=== PATIENT | male | born 1955 | race Caucasian/White ===

== ENCOUNTER 2017-11-26 15:55 | Inpatient (IN) | payer MEDICAID, SELFPAY ==
[2017-11-26 16:13] VITALS: BMI 23.1
--- NOTE | 2017-11-26 16:22 | PCM.HP.STD ---
<Allan Montgomery - Last Filed: 11/26/17 16:22> Problem List (1) Withdrawal from opioids Status: Acute (2) Depression Status: Chronic (3) Anxiety Status: Chronic (4) Nicotine abuse Status: Chronic History of Present Illness Date of Admission: 11/26/17 Chief Complaint: acute opiate withdrawal The patient is a 62 year old M with a long history of heroin abuse, also with a hx of anxiety and depression for which he does not currently take anything, who presented to the medical stabilization program desiring help with heroin withdrawal. He has used about 1 gram of heroin per day for about 28 years. He injects into his deltoids bilaterally stating he has no veins left. He last used about 1/10th of a gram yesterday afternoon. Currently his withdrawal symptoms include mild shakiness, leg pain, hot and cold flashes, restless legs, flatulence without stomach upset, and significant anxiety. He last went through detox in [place] in 2012 and tried suboxone about a year ago which did not work for him. He also smokes about 2 packs per day. He has an occasional non productive cough. He is not SOB. Also of note he has a large healing surgical incision on his arm from an admission to a hospital last month where he had a spider bite and staph infection. It is healing nicely. He denies any other drug use and denies alcohol use. [] Past Medical History Past Medical History (Chronic Problems): Chronic Problems Depression (Chronic) Anxiety (Chronic) Nicotine abuse (Chronic) Surgical History: - - back plate, lung cyst removed not cancer Psychiatric History: Anxiety, Depression Lives: Alone Smoking Status: Heavy Smoker (>10/day) Tobacco Use: Cigarettes Alcohol: None Drugs: Heroin - *Family History Maternal History Items: Cancer - type unknown Paternal History Items: Heart Disease - [place] Review of Systems Constitutional: Reports: - - hot/cold flashes. Denies: Chills, Fever, Weight Change Eyes: Denies: Blurred vision, Double vision, Redness, Vision Change HEENT: Denies: Difficulty Hearing, Head Aches, Sinus Congestion, Sinus Drainage, Sore Throat Cardiovascular: Denies: Chest Pain, Chest Pressure, Chest Tightness, Edema, Heaviness, Light Headedness, Palpitations Respiratory: Reports: Cough. Denies: Shortness of Breath, Shortness of breath at rest, Shortness of breath upon exertion, Sputum production, Wheezing Gastrointestinal: Reports: - - flatus. Denies: Abdominal Pain, Constipation, Diarrhea, Nausea, Vomiting Genitourinary: Denies: Dysuria, Urgency Musculoskeletal: Reports: Leg Pain, -. Denies: Joint Pain, Joint Tenderness Skin: Denies: Rash, Wounds Neurological: Reports: - - restless legs. Denies: Balance problems, Blurred vision, Slurred speech, Confusion, Focal weakness, Headaches, Numbness, Tingling Psychiatric: Reports: Anxiety, Depression. Denies: Homicidal Ideations, Suicidal Ideations Hematologic/ Lymphatic: Denies: Easy Bruising, Easy Bleeding VTE Information - Inpt Only VTE Present on Admission: No VTE Mechan Device Prophylaxis: None VTE Pharm Prophylaxis ordered?: No Reason prophylaxis not ordered:: Procedure Not Indicated Patient Problems: Active and Suspected Problems Withdrawal from opioids (Acute) - Physical Exam General: Alert, Oriented x3, Cooperative HEENT: Atraumatic, PERRLA, EOMI, Normocephalic Neck: Supple, No JVD, Negative Carotid Bruits Lungs: Clear to auscultation, Normal air movement Cardiovascular: Regular rate, No murmurs Abdomen: Bowel Sounds Present, Soft, Non Tender Extremities: No edema, Capillary Refill Less than 3 Seconds Skin: No rashes, No breakdown, - - large healing incision site going from anterior forearm up herrera medial aspect of arm into shoulder. no erythema, discharge, tenderness, warmth Musculoskeletal: No Tenderness to Palpation of Joints or Extremities Neurological: Cranial nerves II-XII grossly intact Psych/Mental Status: Anxious, Alert and oriented to time, place, person, mood and affect Assessment/Plan Active and Suspected Problems Withdrawal from opioids (Acute) 1. Acute heroin withdrawal - 1 g/day IM user, last use yesterday afternoon about 1/10th gram. Current withdrawal symptoms include hot/cold flashes, restless legs and leg pain, shakiness. Initiate acute heroin withdrawal protocol. Plans to do 180 program at [place]. 2. Depression anxiety - currently not on any medications for this 3. Recent LUE staph infection. Appears to be healing well. Medical stabilization Day 1 of 4. Patient seen by Allan Montgomery PA-C under the supervision of Dr. Emerson. <Johan Emerson - Last Filed: 11/26/17 17:19> Problem List (1) Withdrawal from opioids Status: Acute (2) Depression Status: Chronic (3) Anxiety Status: Chronic (4) Nicotine abuse Status: Chronic History of Present Illness The patient is a 62 year old M's withdrawal from heroin. Patient has been using IV heroin now I am heroin for 28 years. Patient's last use was 11 PM on the 10th. Patient is experiencing cramps, restless legs, diaphoresis. [] Past Medical History Allergies fluconazole [From Diflucan] Allergy (Intermediate, Unverified 11/26/17 16:55) Hives Surgical History: - - back plate, lung cyst removed not cancer. Incision and drainage of the left upper extremity from a spider bite. Psychiatric History: Anxiety, Depression Lives: Alone Smoking Status: Heavy Smoker (>10/day) Tobacco Use: Cigarettes Alcohol: None Drugs: Heroin - *Family History Maternal History Items: Cancer Paternal History Items: Heart Disease Review of Systems Constitutional: Reports: -. Denies: Chills, Fever, Weight Change Eyes: Denies: Blurred vision, Double vision, Redness, Vision Change HEENT: Denies: Difficulty Hearing, Head Aches, Sinus Congestion, Sinus Drainage, Sore Throat Cardiovascular: Denies: Chest Pain, Chest Pressure, Chest Tightness, Edema, Heaviness, Light Headedness, Palpitations Respiratory: Reports: Cough. Denies: Shortness of Breath, Shortness of breath at rest, Shortness of breath upon exertion, Sputum production, Wheezing Gastrointestinal: Reports: -. Denies: Abdominal Pain, Constipation, Diarrhea, Nausea, Vomiting Genitourinary: Denies: Dysuria, Urgency Musculoskeletal: Reports: Leg Pain. Denies: Joint Pain, Joint Tenderness Skin: Denies: Rash Neurological: Denies: Balance problems, Blurred vision, Slurred speech, Confusion, Focal weakness, Headaches, Numbness, Tingling Psychiatric: Reports: Anxiety, Depression. Denies: Homicidal Ideations, Suicidal Ideations Hematologic/ Lymphatic: Denies: Easy Bruising, Easy Bleeding VTE Information - Inpt Only VTE Present on Admission: No VTE Mechan Device Prophylaxis: None VTE Pharm Prophylaxis ordered?: No Reason prophylaxis not ordered:: Procedure Not Indicated - Physical Exam General: Alert, Cooperative HEENT: Atraumatic, Normocephalic Neck: Supple, No JVD, Negative Carotid Bruits Lungs: Clear to auscultation, Normal air movement, No rhonchi, No wheeze Cardiovascular: Regular rate, Regular Rhythm, Normal S1, Normal S2, No murmurs Abdomen: Bowel Sounds Present, Soft, Non Tender, Non-Distended Extremities: No edema, No Calf Tenderness Skin: No rashes, No breakdown, - Musculoskeletal: No Tenderness to Palpation of Joints or Extremities Neurological: Cranial nerves II-XII grossly intact Weight: 83.7 kg Body Mass Index (BMI) 23.1 Assessment/Plan Patient seen and examined in family. Agree the above note by the physicians hospital medical assistant. 1. Acute heroin withdrawal Should be initiated on the medical stabilization protocol with Subutex. Patient will also have a medications to help him with other somatic complaints. Code Visit Inpatient E&M: 80452 Init Hosp L2
--- NOTE | 2017-11-26 16:32 | HP.PCM_ITS ---
<Allan Montgomery - Last Filed: 11/26/17 16:22> Problem List (1) Withdrawal from opioids Status: Acute (2) Depression Status: Chronic (3) Anxiety Status: Chronic (4) Nicotine abuse Status: Chronic History of Present Illness Date of Admission: 11/26/17 Chief Complaint: acute opiate withdrawal The patient is a 62 year old M with a long history of heroin abuse, also with a hx of anxiety and depression for which he does not currently take anything, who presented to the medical stabilization program desiring help with heroin withdrawal. He has used about 1 gram of heroin per day for about 28 years. He injects into his deltoids bilaterally stating he has no veins left. He last used about 1/10th of a gram yesterday afternoon. Currently his withdrawal symptoms include mild shakiness, leg pain, hot and cold flashes, restless legs, flatulence without stomach upset, and significant anxiety. He last went through detox in [place] in 2012 and tried suboxone about a year ago which did not work for him. He also smokes about 2 packs per day. He has an occasional non productive cough. He is not SOB. Also of note he has a large healing surgical incision on his arm from an admission to a hospital last month where he had a spider bite and staph infection. It is healing nicely. He denies any other drug use and denies alcohol use. [] Past Medical History Past Medical History (Chronic Problems): Chronic Problems Depression (Chronic) Anxiety (Chronic) Nicotine abuse (Chronic) Surgical History: - - back plate, lung cyst removed not cancer Psychiatric History: Anxiety, Depression Lives: Alone Smoking Status: Heavy Smoker (>10/day) Tobacco Use: Cigarettes Alcohol: None Drugs: Heroin - *Family History Maternal History Items: Cancer - type unknown Paternal History Items: Heart Disease - [place] Review of Systems Constitutional: Reports: - - hot/cold flashes. Denies: Chills, Fever, Weight Change Eyes: Denies: Blurred vision, Double vision, Redness, Vision Change HEENT: Denies: Difficulty Hearing, Head Aches, Sinus Congestion, Sinus Drainage , Sore Throat Cardiovascular: Denies: Chest Pain, Chest Pressure, Chest Tightness, Edema, Heaviness, Light Headedness, Palpitations Respiratory: Reports: Cough. Denies: Shortness of Breath, Shortness of breath at rest, Shortness of breath upon exertion, Sputum production, Wheezing Gastrointestinal: Reports: - - flatus. Denies: Abdominal Pain, Constipation, Diarrhea, Nausea, Vomiting Genitourinary: Denies: Dysuria, Urgency Musculoskeletal: Reports: Leg Pain, -. Denies: Joint Pain, Joint Tenderness Skin: Denies: Rash, Wounds Neurological: Reports: - - restless legs. Denies: Balance problems, Blurred vision, Slurred speech, Confusion, Focal weakness, Headaches, Numbness, Tingling Psychiatric: Reports: Anxiety, Depression. Denies: Homicidal Ideations, Suicidal Ideations Hematologic/ Lymphatic: Denies: Easy Bruising, Easy Bleeding VTE Information - Inpt Only VTE Present on Admission: No VTE Mechan Device Prophylaxis: None VTE Pharm Prophylaxis ordered?: No Reason prophylaxis not ordered:: Procedure Not Indicated Patient Problems: Active and Suspected Problems Withdrawal from opioids (Acute) - Physical Exam General: Alert, Oriented x3, Cooperative HEENT: Atraumatic, PERRLA, EOMI, Normocephalic Neck: Supple, No JVD, Negative Carotid Bruits Lungs: Clear to auscultation, Normal air movement Cardiovascular: Regular rate, No murmurs Abdomen: Bowel Sounds Present, Soft, Non Tender Extremities: No edema, Capillary Refill Less than 3 Seconds Skin: No rashes, No breakdown, - - large healing incision site going from anterior forearm up herrera medial aspect of arm into shoulder. no erythema, discharge, tenderness, warmth Musculoskeletal: No Tenderness to Palpation of Joints or Extremities Neurological: Cranial nerves II-XII grossly intact Psych/Mental Status: Anxious, Alert and oriented to time, place, person, mood and affect Assessment/Plan Active and Suspected Problems Withdrawal from opioids (Acute) 1. Acute heroin withdrawal - 1 g/day IM user, last use yesterday afternoon about 1/10th gram. Current withdrawal symptoms include hot/cold flashes, restless legs and leg pain, shakiness. Initiate acute heroin withdrawal protocol. Plans to do 180 program at [place]. 2. Depression anxiety - currently not on any medications for this 3. Recent LUE staph infection. Appears to be healing well. Medical stabilization Day 1 of 4. Patient seen by Allan Montgomery PA-C under the supervision of Dr. Emerson. <Johan Emerson - Last Filed: 11/26/17 17:19> Problem List (1) Withdrawal from opioids Status: Acute (2) Depression Status: Chronic (3) Anxiety Status: Chronic (4) Nicotine abuse Status: Chronic History of Present Illness The patient is a 62 year old M's withdrawal from heroin. Patient has been using IV heroin now I am heroin for 28 years. Patient's last use was 11 PM on the 10th. Patient is experiencing cramps, restless legs, diaphoresis. [] Past Medical History Allergies fluconazole [From Diflucan] Allergy (Intermediate, Unverified 11/26/17 16:55) Hives Surgical History: - - back plate, lung cyst removed not cancer. Incision and drainage of the left upper extremity from a spider bite. Psychiatric History: Anxiety, Depression Lives: Alone Smoking Status: Heavy Smoker (>10/day) Tobacco Use: Cigarettes Alcohol: None Drugs: Heroin - *Family History Maternal History Items: Cancer Paternal History Items: Heart Disease Review of Systems Constitutional: Reports: -. Denies: Chills, Fever, Weight Change Eyes: Denies: Blurred vision, Double vision, Redness, Vision Change HEENT: Denies: Difficulty Hearing, Head Aches, Sinus Congestion, Sinus Drainage , Sore Throat Cardiovascular: Denies: Chest Pain, Chest Pressure, Chest Tightness, Edema, Heaviness, Light Headedness, Palpitations Respiratory: Reports: Cough. Denies: Shortness of Breath, Shortness of breath at rest, Shortness of breath upon exertion, Sputum production, Wheezing Gastrointestinal: Reports: -. Denies: Abdominal Pain, Constipation, Diarrhea, Nausea, Vomiting Genitourinary: Denies: Dysuria, Urgency Musculoskeletal: Reports: Leg Pain. Denies: Joint Pain, Joint Tenderness Skin: Denies: Rash Neurological: Denies: Balance problems, Blurred vision, Slurred speech, Confusion, Focal weakness, Headaches, Numbness, Tingling Psychiatric: Reports: Anxiety, Depression. Denies: Homicidal Ideations, Suicidal Ideations Hematologic/ Lymphatic: Denies: Easy Bruising, Easy Bleeding VTE Information - Inpt Only VTE Present on Admission: No VTE Mechan Device Prophylaxis: None VTE Pharm Prophylaxis ordered?: No Reason prophylaxis not ordered:: Procedure Not Indicated - Physical Exam General: Alert, Cooperative HEENT: Atraumatic, Normocephalic Neck: Supple, No JVD, Negative Carotid Bruits Lungs: Clear to auscultation, Normal air movement, No rhonchi, No wheeze Cardiovascular: Regular rate, Regular Rhythm, Normal S1, Normal S2, No murmurs Abdomen: Bowel Sounds Present, Soft, Non Tender, Non-Distended Extremities: No edema, No Calf Tenderness Skin: No rashes, No breakdown, - Musculoskeletal: No Tenderness to Palpation of Joints or Extremities Neurological: Cranial nerves II-XII grossly intact Weight: 83.7 kg Body Mass Index (BMI) 23.1 Assessment/Plan Patient seen and examined in family. Agree the above note by the physicians senior court office assistant. 1. Acute heroin withdrawal * Should be initiated on the medical stabilization protocol with Subutex. Patient will also have a medications to help him with other somatic complaints. Code Visit Inpatient E&M: 32781 Init Hosp L2
[2017-11-26] MEDS: Buprenorphine HCl 2 MG TAB.SUBL SL (17:20)
[2017-11-26] MEDS: cloNIDine HCl 0.1 MG Tablet PO (17:21)
[2017-11-26] MEDS: QUEtiapine 25 MG Tablet PO (17:21)
[2017-11-26] MEDS: Dicyclomine 10 MG Capsule 20 MG PO (17:21)
[2017-11-26] MEDS: Methocarbamol 750 MG Tablet PO (17:22)
[2017-11-26] MEDS: Pramipexole Di-HCl 0.25 MG Tablet PO (17:25)
[2017-11-26 17:28] VITALS: BP 126/89; PULSE 82; RESP 20; TEMP 36.3
[2017-11-26 20:19] VITALS: BP 116/77; PULSE 51; RESP 18; TEMP 36.4
[2017-11-26] MEDS: hydrOXYzine PAM 25 MG Capsule 50 MG PO (20:23)
[2017-11-27] MEDS: Buprenorphine HCl 2 MG TAB.SUBL SL ×3 (01:48→16:58)
[2017-11-27 02:00] VITALS: BP 148/97; PULSE 55; RESP 16; TEMP 37.1
[2017-11-27 06:00] VITALS: BP 137/92; PULSE 55; RESP 18; TEMP 37
[2017-11-27] MEDS: Methocarbamol 750 MG Tablet PO ×2 (06:29→12:25)
[2017-11-27] MEDS: Pramipexole Di-HCl 0.25 MG Tablet PO ×2 (06:29→19:42)
[2017-11-27 09:36] VITALS: BP 130/90; PULSE 52; RESP 18; TEMP 36.3
[2017-11-27 15:54] VITALS: PULSE 58; RESP 18
[2017-11-27 16:00] VITALS: BP 149/95; PULSE 59; RESP 18; TEMP 36.4
--- NOTE | 2017-11-27 17:27 | PCM.PROGNOTE ---
Patient Problems: Active and Suspected Problems Withdrawal from opioids (Acute) Subjective: He feels well. He has no complains today. He denied of any abdominal discomfort, nausea, vomiting, or cold sweats. No signs of excess sedation. - Physical Exam General: Alert, Oriented x3, Cooperative, Well developed, Well nourished HEENT: Atraumatic, PERRLA Oral: Moist Mucosa Neck: Supple, No JVD Lungs: Clear to auscultation, Normal air movement, No rhonchi, No wheeze, No rales Cardiovascular: Regular rate, Regular Rhythm, Normal S1, Normal S2, No murmurs, No Ectopic Activity Abdomen: Bowel Sounds Present, Soft, Non Tender, Non-Distended, No Hepato-splenomegaly Extremities: No clubbing, No cyanosis Skin: No rashes, No breakdown, - - large healing incision site going from anterior forearm up herrera medial aspect of arm into shoulder. no erythema, discharge, tenderness, warmth Musculoskeletal: No Tenderness to Palpation of Joints or Extremities, No Muscle Wasting Lymphatic: No Cervical, Supraclavicular, or Inguinal Adenopathy Neurological: Cranial nerves II-XII grossly intact, Neuro grossly intact Psych/Mental Status: Normal Affect Vital Signs Temp Pulse Resp BP 97.5 F L 59 L 18 149/95 H 11/27/17 16:00 11/27/17 16:00 11/27/17 16:00 11/27/17 16:00 Oxygen Delivery Method Room Air Weight: 184 lb 8.43 oz Body Mass Index (BMI) 23.1 Intake and Output for Last 24 Hours 11/25/17 11/26/17 11/27/17 23:59 23:59 23:59 Intake Total 1700 / 1700 Balance 1700 / 1700 Medical Necessity - Tobacco Use Smoking Status: Heavy Smoker (>10/day) Tobacco Use: Cigarettes Assessment/Plan Active and Suspected Problems Withdrawal from opioids (Acute) The patient is a 62 year old M with a long history of heroin abuse, also with a hx of anxiety and depression for which he does not currently take anything, who presented to the medical stabilization program desiring help with heroin withdrawal. He has used about 1 gram of heroin per day for about 28 years. He injects into his deltoids bilaterally stating he has no veins left. He last used about 1/10th of a gram yesterday afternoon. Currently his withdrawal symptoms include mild shakiness, leg pain, hot and cold flashes, restless legs, flatulence without stomach upset, and significant anxiety. He last went through detox in [place] in 2012 and tried Subutex about a year ago which did not work for him. He also smokes about 2 packs per day. He has an occasional non productive cough. He is not SOB. Also of note he has a large healing surgical incision on his arm from an admission to a hospital last month where he had a spider bite and staph infection. It is healing nicely. He denies any other drug use and denies alcohol use. 1. Acute heroin withdrawal - 1 g/day IM user, last use yesterday afternoon about 1/10th gram. Current withdrawal symptoms include hot/cold flashes, restless legs and leg pain, shakiness. Initiate acute heroin withdrawal protocol. Plans to do 180 program [facility]. 2. Depression anxiety - currently not on any medications for this 3. Recent LUE staph infection. Appears to be healing well. VTE prophylaxis: early ambulation. Patient is full code. Disposition: 180 program at discharge. Code Visit Inpatient E&M: 35078 Subs Hosp L2
--- NOTE | 2017-11-27 17:32 | PN_ITS ---
Patient Problems: Active and Suspected Problems Withdrawal from opioids (Acute) Subjective: He feels well. He has no complains today. He denied of any abdominal discomfort, nausea, vomiting, or cold sweats. No signs of excess sedation. - Physical Exam General: Alert, Oriented x3, Cooperative, Well developed, Well nourished HEENT: Atraumatic, PERRLA Oral: Moist Mucosa Neck: Supple, No JVD Lungs: Clear to auscultation, Normal air movement, No rhonchi, No wheeze, No rales Cardiovascular: Regular rate, Regular Rhythm, Normal S1, Normal S2, No murmurs, No Ectopic Activity Abdomen: Bowel Sounds Present, Soft, Non Tender, Non-Distended, No Hepato- splenomegaly Extremities: No clubbing, No cyanosis Skin: No rashes, No breakdown, - - large healing incision site going from anterior forearm up herrera medial aspect of arm into shoulder. no erythema, discharge, tenderness, warmth Musculoskeletal: No Tenderness to Palpation of Joints or Extremities, No Muscle Wasting Lymphatic: No Cervical, Supraclavicular, or Inguinal Adenopathy Neurological: Cranial nerves II-XII grossly intact, Neuro grossly intact Psych/Mental Status: Normal Affect Vital Signs Temp Pulse Resp BP 97.5 F L 59 L 18 149/95 H 11/27/17 16:00 11/27/17 16:00 11/27/17 16:00 11/27/17 16:00 Oxygen Delivery Method Room Air Weight: 184 lb 8.43 oz Body Mass Index (BMI) 23.1 Intake and Output for Last 24 Hours 11/25/17 11/26/17 11/27/17 23:59 23:59 23:59 Intake Total 1700 / 1700 Balance 1700 / 1700 Medical Necessity - Tobacco Use Smoking Status: Heavy Smoker (>10/day) Tobacco Use: Cigarettes Assessment/Plan Active and Suspected Problems Withdrawal from opioids (Acute) The patient is a 62 year old M with a long history of heroin abuse, also with a hx of anxiety and depression for which he does not currently take anything, who presented to the medical stabilization program desiring help with heroin withdrawal. He has used about 1 gram of heroin per day for about 28 years. He injects into his deltoids bilaterally stating he has no veins left. He last used about 1/10th of a gram yesterday afternoon. Currently his withdrawal symptoms include mild shakiness, leg pain, hot and cold flashes, restless legs, flatulence without stomach upset, and significant anxiety. He last went through detox in [place] in 2012 and tried Subutex about a year ago which did not work for him. He also smokes about 2 packs per day. He has an occasional non productive cough. He is not SOB. Also of note he has a large healing surgical incision on his arm from an admission to a hospital last month where he had a spider bite and staph infection. It is healing nicely. He denies any other drug use and denies alcohol use. 1. Acute heroin withdrawal - 1 g/day IM user, last use yesterday afternoon about 1/10th gram. Current withdrawal symptoms include hot/cold flashes, restless legs and leg pain, shakiness. Initiate acute heroin withdrawal protocol. Plans to do 180 program at [place]. 2. Depression anxiety - currently not on any medications for this 3. Recent LUE staph infection. Appears to be healing well. VTE prophylaxis: early ambulation. Patient is full code. Disposition: 180 program at discharge. Code Visit Inpatient E&M: 06667 Subs Hosp L2
[2017-11-27] MEDS: Tuberculin,Purif.prot.deriv. 50 TU/ML Vial 5 ML ID (18:40)
[2017-11-27 19:34] VITALS: BP 127/84; PULSE 57; RESP 16; TEMP 36.6
[2017-11-27] MEDS: QUEtiapine 25 MG Tablet PO (19:42)
[2017-11-28 01:34] VITALS: BP 134/75; PULSE 58; RESP 20; TEMP 36.6
[2017-11-28] MEDS: Buprenorphine HCl 2 MG TAB.SUBL SL ×3 (01:37→21:00)
[2017-11-28] MEDS: QUEtiapine 25 MG Tablet PO ×3 (01:45→18:10)
[2017-11-28 09:20] VITALS: BP 134/92; PULSE 59; RESP 16; TEMP 36.4
[2017-11-28 14:00] VITALS: BP 108/68; PULSE 66; RESP 16; TEMP 36.2
[2017-11-28] MEDS: Methocarbamol 750 MG Tablet PO ×2 (14:12→21:01)
--- NOTE | 2017-11-28 19:13 | PN_ITS ---
Patient Problems: Active and Suspected Problems Withdrawal from opioids (Acute) Subjective: He feels well today. He has no additional problems. No chest pain, dyspnea, abdominal pain, nausea, vomiting, or diarrhea. - Physical Exam General: Alert, Oriented x3, Cooperative, Well developed, Well nourished HEENT: Atraumatic, PERRLA Oral: Moist Mucosa Neck: Supple, No JVD Lungs: Clear to auscultation, Normal air movement, No rhonchi, No wheeze, No rales Cardiovascular: Regular rate, Regular Rhythm, Normal S1, Normal S2, No murmurs, No Ectopic Activity Abdomen: Bowel Sounds Present, Soft, Non Tender, Non-Distended, No Hepato- splenomegaly Extremities: No clubbing, No cyanosis Skin: No rashes, No breakdown, - - large healing incision site going from anterior forearm up herrera medial aspect of arm into shoulder. no erythema, discharge, tenderness, warmth Musculoskeletal: No Tenderness to Palpation of Joints or Extremities, No Muscle Wasting Lymphatic: No Cervical, Supraclavicular, or Inguinal Adenopathy Neurological: Cranial nerves II-XII grossly intact, Neuro grossly intact Psych/Mental Status: Normal Affect - Physical Exam Vital Signs Temp Pulse Resp BP 97.1 F L 66 16 108/68 11/28/17 14:00 11/28/17 14:00 11/28/17 14:00 11/28/17 14:00 Oxygen Delivery Method Room Air Weight: 184 lb 8.43 oz Body Mass Index (BMI) 23.1 Intake and Output for Last 24 Hours 11/26/17 11/27/17 11/28/17 23:59 23:59 23:59 Intake Total 1700 / 1700 750 / 750 Balance 1700 / 1700 750 / 750 Medical Necessity - Tobacco Use Smoking Status: Heavy Smoker (>10/day) Tobacco Use: Cigarettes Assessment/Plan Active and Suspected Problems Withdrawal from opioids (Acute) The patient is a 62 year old M with a long history of heroin abuse, also with a hx of anxiety and depression for which he does not currently take anything, who presented to the medical stabilization program desiring help with heroin withdrawal. He has used about 1 gram of heroin per day for about 28 years. He injects into his deltoids bilaterally stating he has no veins left. He last used about 1/10th of a gram yesterday afternoon. Currently his withdrawal symptoms include mild shakiness, leg pain, hot and cold flashes, restless legs, flatulence without stomach upset, and significant anxiety. He last went through detox in [place] in 2012 and tried Subutex about a year ago which did not work for him. He also smokes about 2 packs per day. He has an occasional non productive cough. He is not SOB. Also of note he has a large healing surgical incision on his arm from an admission to a hospital last month where he had a spider bite and staph infection. It is healing nicely. He denies any other drug use and denies alcohol use. 1. Acute heroin withdrawal - 1 g/day IM user, last use yesterday afternoon about 1/10th gram. Current withdrawal symptoms include hot/cold flashes, restless legs and leg pain, shakiness. Initiate acute heroin withdrawal protocol. Plans to do 180 program at [place]. 2. Depression anxiety - currently not on any medications for this 3. Recent LUE staph infection. Appears to be healing well. VTE prophylaxis: early ambulation. Patient is full code. Disposition: 180 program at discharge. Code Visit Inpatient E&M: 49532 Subs Hosp L2
[2017-11-28 20:56] VITALS: BP 135/93; PULSE 60; RESP 18; TEMP 36.4
[2017-11-28] MEDS: cloNIDine HCl 0.1 MG Tablet PO (21:00)
[2017-11-29 08:58] VITALS: BP 129/84; PULSE 68; RESP 16; TEMP 36.6; O2SAT 95
[2017-11-29 09:01] VITALS: BP 129/84; PULSE 68; RESP 16; TEMP 36.6
[2017-11-29] MEDS: Buprenorphine HCl 2 MG TAB.SUBL SL (09:11)
[2017-11-29] MEDS: Methocarbamol 750 MG Tablet PO (09:17)
--- NOTE | 2017-11-29 09:52 | PCM.DC ---
- Discharge Diagnoses Current Active Problems: Current Active and Chronic Problems Withdrawal from opioids (Acute) Depression (Chronic) Anxiety (Chronic) Nicotine abuse (Chronic) You will use the following diet at home:: No restrictions Your food should be the consistency of: Regular Your liquids should be the consistency of: Regular/Thin Allergies/Adverse Reactions: Allergies fluconazole [From Diflucan] Allergy (Intermediate, Verified 11/26/17 18:27) Hives Primary Care Physician: Care Physician,No Primary [Primary Care Provider] - Please Follow Up With: Follow up with [facility]
--- NOTE | 2017-11-29 09:53 | PCM.DC.SUM ---
Discharge Date and Diagnosis - Problem List Patient Problems: Active and Suspected Problems Withdrawal from opioids (Acute) Date of Admission: 11/26/17 Date of Discharge: 11/29/17 - Primary Discharge Diagnosis Active and Suspected Problems Withdrawal from opioids (Acute) - Secondary Discharge Diagnosis Chronic Problems Depression (Chronic) Anxiety (Chronic) Nicotine abuse (Chronic) Hospital Course and Treatment Imaging Results: None. APPLICATIONS ARCHITECT: Fei Long. Operations: None Procedures: None Summary of Care Provided: The patient is a 62 year old M with a long history of heroin abuse, also with a hx of anxiety and depression for which he does not currently take anything, who presented to the medical stabilization program desiring help with heroin withdrawal. He has used about 1 gram of heroin per day for about 28 years. He injects into his deltoids bilaterally stating he has no veins left. He last used about 1/10th of a gram yesterday afternoon. Currently his withdrawal symptoms include mild shakiness, leg pain, hot and cold flashes, restless legs, flatulence without stomach upset, and significant anxiety. He last went through detox in [place] in 2012 and tried Subutex about a year ago which did not work for him. He also smokes about 2 packs per day. He has an occasional non productive cough. He is not SOB. Also of note he has a large healing surgical incision on his arm from an admission to a hospital last month where he had a spider bite and staph infection. It is healing nicely. He denies any other drug use and denies alcohol use. 1. Acute heroin withdrawal - 1 g/day IM user, last use yesterday afternoon about 1/10th gram. Current withdrawal symptoms include hot/cold flashes, restless legs and leg pain, shakiness. Completed Medical Stabilization therapy. Discharge to home and follow up with [facility]. 2. Depression anxiety - currently not on any medications. His affect / mood are stable. 3. Recent LUE staph infection. Appears to be healing well. No further treatment at this time. VTE prophylaxis: early ambulation. Patient is full code. Disposition: [facility] program at discharge. [facility]. Discharge Diet: No Restrictions Discharge Activity: Return to Normal Activity Primary Care Physician: Care Physician,No Primary [Primary Care Provider] - Please Follow Up With: Follow up with [facility] Disposition: Home Patient Condition:: Good Medical Necessity - Tobacco Use Smoking Status: Heavy Smoker (>10/day) Tobacco Use: Cigarettes Meaningful Use Info Meaningful Use Diagnoses (Choose all that apply): None applicable Code Visit Inpatient E&M: 00134 Disch Hosp
--- NOTE | 2017-11-29 09:56 | DS.PCM_ITS ---
Discharge Date and Diagnosis - Problem List Patient Problems: Active and Suspected Problems Withdrawal from opioids (Acute) Date of Admission: 11/26/17 Date of Discharge: 11/29/17 - Primary Discharge Diagnosis Active and Suspected Problems Withdrawal from opioids (Acute) - Secondary Discharge Diagnosis Chronic Problems Depression (Chronic) Anxiety (Chronic) Nicotine abuse (Chronic) Hospital Course and Treatment Imaging Results: None. TECHNICAL WRITING LEAD/MGR: Fei Long. Operations: None Procedures: None Summary of Care Provided: The patient is a 62 year old M with a long history of heroin abuse, also with a hx of anxiety and depression for which he does not currently take anything, who presented to the medical stabilization program desiring help with heroin withdrawal. He has used about 1 gram of heroin per day for about 28 years. He injects into his deltoids bilaterally stating he has no veins left. He last used about 1/10th of a gram yesterday afternoon. Currently his withdrawal symptoms include mild shakiness, leg pain, hot and cold flashes, restless legs, flatulence without stomach upset, and significant anxiety. He last went through detox in [place] in 2012 and tried Subutex about a year ago which did not work for him. He also smokes about 2 packs per day. He has an occasional non productive cough. He is not SOB. Also of note he has a large healing surgical incision on his arm from an admission to a hospital last month where he had a spider bite and staph infection. It is healing nicely. He denies any other drug use and denies alcohol use. 1. Acute heroin withdrawal - 1 g/day IM user, last use yesterday afternoon about 1/10th gram. Current withdrawal symptoms include hot/cold flashes, restless legs and leg pain, shakiness. Completed Medical Stabilization therapy. Discharge to home and follow up with [facility]. 2. Depression anxiety - currently not on any medications. His affect / mood are stable. 3. Recent LUE staph infection. Appears to be healing well. No further treatment at this time. VTE prophylaxis: early ambulation. Patient is full code. Disposition: [facility] program at discharge. [facility]. Discharge Diet: No Restrictions Discharge Activity: Return to Normal Activity Primary Care Physician: Care Physician,No Primary [Primary Care Provider] - Please Follow Up With: Follow up with [facility] Disposition: Home Patient Condition:: Good Medical Necessity - Tobacco Use Smoking Status: Heavy Smoker (>10/day) Tobacco Use: Cigarettes Meaningful Use Info Meaningful Use Diagnoses (Choose all that apply): None applicable Code Visit Inpatient E&M: 58353 Disch Hosp
[2017-11-29] MEDS: hydrOXYzine PAM 25 MG Capsule 50 MG PO (11:47)
[2017-11-29] MEDS: cloNIDine HCl 0.1 MG Tablet PO (11:47)
--- NOTE | 2017-11-29 11:48 | NURSING ---
Pt c/o anxiety and hot/ cold fluctuation. PRN meds given at this time to help with withdrawal symptoms.
[2017-11-29 14:00] VITALS: BP 107/65; PULSE 58; RESP 16; TEMP 36.4
--- NOTE | 2017-11-29 16:25 | NURSING ---
Patient states that he has a family member that might be able to transport him home this evening, after TB test is read, close to 1900. This RN called [facility] [employer] transportation assistance and notified them of situation and that patient must be discharged today. Notified that I will need to call again when patient is ready to leave as they might have a car that they would send immediately. Notified that they do take patients after 7pm but that it might take awhile to arrange transportation.
[2017-11-29 17:04] VITALS: BP 114/75; PULSE 58; RESP 16; TEMP 36.3
== END 2017-11-29 19:15 | disposition home or self-care (01) | DRG 435 ==
PROVIDERS: Visit Provider Hospitalist
DX: F11.23 Opioid dependence with withdrawal (principal); F17.210 Nicotine dependence, cigarettes, uncomplicated; F32.9 Major depressive disorder, single episode, unspecified; F41.9 Anxiety disorder, unspecified

== ENCOUNTER 2018-05-28 13:46 | Inpatient (IN) | payer MEDICAID, SELFPAY ==
[2018-05-28 14:05] VITALS: RESP 18; BMI 21.2
[2018-05-28 14:19] VITALS: BP 135/83; PULSE 67; RESP 16; TEMP 36.1
[2018-05-28 14:21] VITALS: BP 135/83; PULSE 67; RESP 18; TEMP 36.1; O2SAT 98
--- NOTE | 2018-05-28 14:48 | PCM.HP.STD ---
History of Present Illness Date of Admission: 05/28/18 Chief Complaint: opioid withdrawal The patient is a 63 year old M with h/o heroin abuse. Admits to using about 1 gram a day almost daily. Has been an active user for almost 30 years patient presented to [facility] and appears is interested in getting help and getting sober. last use was yesterday. Complains of classic withdrawal symptoms with jitteriness, sweating, restless legs and anxiety and also beginning o have some diarrhea. denies any nausea or vomiting. Does have some abdominal cramps though. Denies any chest plain or SOB [] Past Medical History Past Medical History (Chronic Problems): Chronic Problems Depression (Chronic) Anxiety (Chronic) Nicotine abuse (Chronic) Allergies fluconazole [From Diflucan] Allergy (Intermediate, Verified 11/26/17 18:27) Hives Surgical History: - - back plate, lung cyst removed not cancer. Incision and drainage of the left upper extremity from a spider bite. Psychiatric History: Anxiety, Depression Smoking Status: Heavy Smoker (>10/day) - *Family History Maternal History Items: Cancer Paternal History Items: Heart Disease Review of Systems Constitutional: Reports: Chills, Malaise. Denies: Anorexia Cardiovascular: Reports: Claudication. Denies: Chest Pain, Chest Pressure, Chest Tightness Respiratory: Denies: Cough, Shortness of Breath Gastrointestinal: Reports: Abdominal Pain, Diarrhea. Denies: Nausea, Vomiting Musculoskeletal: Reports: Leg Pain, Muscle pain Psychiatric: Reports: Anxiety Comment: All other systems reviewed and are negative VTE Information - Inpt Only VTE Present on Admission: No VTE Mechan Device Prophylaxis: None VTE Pharm Prophylaxis ordered?: No Objective: met sitting up in bed eating - Physical Exam General: Alert, Oriented x3, Cooperative - in some distress, restless Oral: Moist Mucosa Neck: Supple, No JVD Lungs: Clear to auscultation, Normal air movement, No rhonchi, No wheeze, No rales Cardiovascular: Regular rate, Regular Rhythm, Normal S1, Normal S2, No murmurs, No Ectopic Activity Abdomen: Bowel Sounds Present, Soft, Non Tender, Non-Distended, No Hepato-splenomegaly, Passing Flatus Extremities: No clubbing, No cyanosis, No edema Skin: No rashes Neurological: Cranial nerves II-XII grossly intact, Deep Tendon Reflexes 2+/4 and Symmetrical, Neuro grossly intact Psych/Mental Status: Normal Affect, Agitated, Anxious, Restless Vital Signs Temp Pulse Resp BP Pulse Ox 97.0 F L 67 18 135/83 H 98 05/28/18 14:21 05/28/18 14:21 05/28/18 14:21 05/28/18 14:21 05/28/18 14:21 Oxygen Delivery Method Room Air Weight: 77.111 kg Body Mass Index (BMI) 21.2 Assessment/Plan All Active Problems Withdrawal from opioids (Acute) 1. Acute heroin withdrawal Will start on opioid withdrawal protocol Emotional support Consult case planner Code Visit Inpatient E&M: 44874 Init Hosp L3
[2018-05-28] MEDS: Buprenorphine HCl 2 MG TAB.SUBL SL ×2 (14:52→21:47)
--- NOTE | 2018-05-28 15:07 | HP.PCM_ITS ---
History of Present Illness Date of Admission: 05/28/18 Chief Complaint: opioid withdrawal The patient is a 63 year old M with h/o heroin abuse. Admits to using about 1 gram a day almost daily. Has been an active user for almost 30 years patient presented to [facility] and appears is interested in getting help and getting sober. last use was yesterday. Complains of classic withdrawal symptoms with jitteriness, sweating, restless legs and anxiety and also beginning o have some diarrhea. denies any nausea or vomiting. Does have some abdominal cramps though. Denies any chest plain or SOB [] Past Medical History Past Medical History (Chronic Problems): Chronic Problems Depression (Chronic) Anxiety (Chronic) Nicotine abuse (Chronic) Allergies fluconazole [From Diflucan] Allergy (Intermediate, Verified 11/26/17 18:27) Hives Surgical History: - - back plate, lung cyst removed not cancer. Incision and drainage of the left upper extremity from a spider bite. Psychiatric History: Anxiety, Depression Smoking Status: Heavy Smoker (>10/day) - *Family History Maternal History Items: Cancer Paternal History Items: Heart Disease Review of Systems Constitutional: Reports: Chills, Malaise. Denies: Anorexia Cardiovascular: Reports: Claudication. Denies: Chest Pain, Chest Pressure, Chest Tightness Respiratory: Denies: Cough, Shortness of Breath Gastrointestinal: Reports: Abdominal Pain, Diarrhea. Denies: Nausea, Vomiting Musculoskeletal: Reports: Leg Pain, Muscle pain Psychiatric: Reports: Anxiety Comment: All other systems reviewed and are negative VTE Information - Inpt Only VTE Present on Admission: No VTE Mechan Device Prophylaxis: None VTE Pharm Prophylaxis ordered?: No Objective: met sitting up in bed eating - Physical Exam General: Alert, Oriented x3, Cooperative - in some distress, restless Oral: Moist Mucosa Neck: Supple, No JVD Lungs: Clear to auscultation, Normal air movement, No rhonchi, No wheeze, No rales Cardiovascular: Regular rate, Regular Rhythm, Normal S1, Normal S2, No murmurs, No Ectopic Activity Abdomen: Bowel Sounds Present, Soft, Non Tender, Non-Distended, No Hepato- splenomegaly, Passing Flatus Extremities: No clubbing, No cyanosis, No edema Skin: No rashes Neurological: Cranial nerves II-XII grossly intact, Deep Tendon Reflexes 2+/4 and Symmetrical, Neuro grossly intact Psych/Mental Status: Normal Affect, Agitated, Anxious, Restless Vital Signs Temp Pulse Resp BP Pulse Ox 97.0 F L 67 18 135/83 H 98 05/28/18 14:21 05/28/18 14:21 05/28/18 14:21 05/28/18 14:21 05/28/18 14:21 Oxygen Delivery Method Room Air Weight: 77.111 kg Body Mass Index (BMI) 21.2 Assessment/Plan All Active Problems Withdrawal from opioids (Acute) 1. Acute heroin withdrawal Will start on opioid withdrawal protocol Emotional support Consult community case manager Code Visit Inpatient E&M: 52149 Init Hosp L3
[2018-05-28] MEDS: Dicyclomine 10 MG Capsule 20 MG PO (16:36)
[2018-05-28 17:54] VITALS: BP 128/40; PULSE 53; RESP 18; TEMP 36.8
[2018-05-28] MEDS: hydrOXYzine PAM 25 MG Capsule 50 MG PO (17:54)
[2018-05-28] MEDS: Pramipexole Di-HCl 0.25 MG Tablet PO (18:51)
[2018-05-28 21:44] VITALS: BP 136/84; PULSE 52; RESP 16; TEMP 36.6
[2018-05-28] MEDS: QUEtiapine 25 MG Tablet PO (21:47)
[2018-05-28] MEDS: Methocarbamol 750 MG Tablet PO (21:47)
[2018-05-29 02:00] VITALS: BP 118/71; PULSE 55; RESP 16; TEMP 36.6
[2018-05-29] MEDS: Dicyclomine 10 MG Capsule 20 MG PO (02:20)
[2018-05-29] MEDS: hydrOXYzine PAM 25 MG Capsule 50 MG PO ×2 (02:20→16:27)
[2018-05-29] MEDS: Methocarbamol 750 MG Tablet PO ×4 (05:34→22:50)
[2018-05-29 05:35] VITALS: BP 141/87; PULSE 45; RESP 16; TEMP 36.4
[2018-05-29] MEDS: Buprenorphine HCl 2 MG TAB.SUBL SL ×3 (05:35→22:50)
--- NOTE | 2018-05-29 05:47 | NURSING ---
Pt asymptomatic with bradycardia. Regular S1, S2.
--- NOTE | 2018-05-29 07:29 | PN_ITS ---
Subjective: Patient was seen and examined. Complains of generalized aches. Denies any worsening nausea or dizziness or chest pain Vitals/I&O's: Vital Signs Temp Pulse Resp BP Pulse Ox 97.6 F L 45 L 16 141/87 H 98 05/29/18 05:35 05/29/18 05:35 05/29/18 05:35 05/29/18 05:35 05/28/18 14:21 Oxygen Delivery Method Room Air Weight: 77.11 kg Body Mass Index (BMI) 21.2 Intake and Output for Last 24 Hours 05/27/18 05/28/18 05/29/18 23:59 23:59 23:59 Intake Total 800 / 800 Balance 800 / 800 General: Alert, Oriented x3, Cooperative, No apparent distress HEENT: Atraumatic, PERRLA, EOMI, Normocephalic Oral: Moist Mucosa Neck: Supple, No JVD, Negative Carotid Bruits Lungs: Clear to auscultation, Normal air movement Cardiovascular: Regular rate, Regular Rhythm, Normal S1, Normal S2, No murmurs Abdomen: Bowel Sounds Present, Soft, Non Tender, Non-Distended, No Hepato- splenomegaly Extremities: No edema Skin: No rashes, No breakdown Musculoskeletal: No Tenderness to Palpation of Joints or Extremities Lymphatic: No Cervical, Supraclavicular, or Inguinal Adenopathy Neurological: Cranial nerves II-XII grossly intact, Neuro grossly intact Psych/Mental Status: Normal Affect, Appropriate Current Medications Buprenorphine HCl (Buprenorphine Hcl) 4 mg SL Q8H ISMAEL; Taper Stop: 05/31/18 18:29 Last Admin: 05/29/18 05:35 Dose: 4 mg Clonidine (Catapres) 0.1 mg PO Q2H PRN PRN PRN Reason: Hot/Cold Sweats or Anxiety Dicyclomine HCl (Bentyl) 20 mg PO Q6H PRN PRN PRN Reason: Abdomnial Discomfort Last Admin: 05/29/18 02:20 Dose: 20 mg Hydroxyzine Pamoate (Vistaril Pamoate Capsule) 50 mg PO Q6H PRN PRN PRN Reason: Mild Anxiety Last Admin: 05/29/18 02:20 Dose: 50 mg Methocarbamol (Methocarbamol) 750 mg PO 4X/DAY PRN PRN Reason: MUSCLE SPASM Last Admin: 05/29/18 05:34 Dose: 750 mg Nicotine (Nicoderm Cq (Pbkc)) 21 mg TRANSDERM. DAILY ISMAEL Last Admin: 05/28/18 19:36 Dose: 21 mg Pramipexole Dihydrochloride (Mirapex) 0.25 mg PO Q12H PRN PRN PRN Reason: Restless Legs Last Admin: 05/28/18 18:51 Dose: 0.25 mg Quetiapine Fumarate (Seroquel) 25 mg PO Q6H PRN PRN Reason: AGITATION Last Admin: 05/28/18 21:47 Dose: 25 mg Medical Necessity - Tobacco Use Smoking Status: Heavy Smoker (>10/day) Assessment/Plan All Active Problems Withdrawal from opioids (Acute) 63-year-old male with past medical history of heroin dependency comes in with nausea, muscle aches, diarrhea, restless leg, for medical stabilization. He last used heroin 1 day prior to admission 1. Acute opioid withdrawal in a known heroin user, improving, recent CIWA score was 4, being managed under the [facility] protocol, continue to monitor 2. Nicotine dependency, advised to quit, on replacement 3. Anxiety/depression, not on any chronic home meds 4. DVT prophylaxis with early ambulation Code Visit Inpatient E&M: 35577 Subs Hosp L2
[2018-05-29 08:26] VITALS: BP 118/75; PULSE 50; RESP 16; TEMP 36.6; O2SAT 99
[2018-05-29] MEDS: QUEtiapine 25 MG Tablet PO ×2 (13:02→22:49)
[2018-05-29] MEDS: Pramipexole Di-HCl 0.25 MG Tablet PO (13:02)
[2018-05-29 13:06] VITALS: BP 114/78; PULSE 60; RESP 16; TEMP 36.8; O2SAT 98
[2018-05-29 16:22] VITALS: BP 130/89; PULSE 58; RESP 16; RESP 18; TEMP 36.4; O2SAT 99
--- NOTE | 2018-05-29 18:37 | NURSING ---
Emily called up to unit at 1828 and notified this RN that patient called downstairs and stated that he did not receive his dinner. Emily asked this RN if someone could go back and check on pt to see if he is confused. OZZIE Rivera sitting by this RN and was asked. She states that pt. is not confused. Emily asked if they could provide meal and emily said no, the cafeteria is closed. She stated that we need to have staff provide pt a frozen dinner. This RN notified her that a problem with this is that it causes staff to have angry patients. OZZIE Rivera notified this RN that she was present in room prior to 1800 when patient ordered a fish sandwich for dinner. OZZIE Rivera went in to see patient, apologized and provided pt with his selection of a tv dinner.
[2018-05-29 22:47] VITALS: BP 120/89; PULSE 57; RESP 14; TEMP 36.6
[2018-05-30 05:45] VITALS: BP 125/81; PULSE 52; RESP 16; TEMP 36.6
[2018-05-30] MEDS: Pramipexole Di-HCl 0.25 MG Tablet PO ×2 (05:46→23:12)
[2018-05-30] MEDS: Buprenorphine HCl 2 MG TAB.SUBL SL ×2 (05:46→18:40)
[2018-05-30 06:40] LABS: Absolute Lymphocyte Count 1.78 X10^3/ul (0.83-4.51); Absolute Neutrophil Count 2.7 X10^3/uL (2.0-7.7); Basophil# 0.05 X10^3/uL; Eosinophil# 0.36 X10^3/uL; Eosinophils% 6.9 % (0-5); Hematocrit 42.5 % (40-54); Hemoglobin 13.7 g/dl (13.0-16.5); Lymphocyte # 1.78 X10^3/ul (4.0); Mean Corp Hgb Conc 32.2 g/gl (32-36); Mean Corpuscular Hgb 28.8 pg (27.0-32.0); Mean Corpuscular Volume 89.3 fL (80-94); Mean Platelet Vol. 11.8 fl (6.2-12.0); Monocyte# 0.36 X10^3/uL; Monocyte% 6.9 % (0-10); Neutrophil # 2.67 X10^3/uL (2.7-7.7); POSITIVE COUNT NO; POSITIVE DIFFERENTIAL NO; POSITIVE MORPHOLOGY NO; Platelet Count 174 K/mm3 (150-450); RBC Distribution Width CV 15.5 % (11.6-14.6); RBC Distribution Width SD 50.3 fl (35.1-43.9); Red Blood Count 4.76 M/mm3 (4.6-6.2); White Blood Count 5.2 K/mm3 (4.4-11.0)
[2018-05-30 06:57] LABS: ALB/GLOB Ratio 0.6 RATIO (0.9-2.4); AST(SGOT) 28 U/L (15-37); Alanine Aminotransfer ALT/SGPT 26 U/L (16-61); Albumin, Serum 2.6 g/dL (3.2-5.0); Alkaline Phosphatase 90 U/L (45-117); Anion Gap 7 (5-15); BUN 18 mg/dL (7-18); BUN/Creat Ratio 22.5 RATIO (10-20); Calcium,Total 8.3 mg/dL (8.5-10.1); Chloride 112 mmol/L (98-107); EST Glomerular Filtration Rate 104 mL/min (>60); Est Glom Filt Rate - Afr Amer 126 mL/min (>60); Estimated Creatinine Clearance 105.76 ml/min; Globulin 4.6 g/dL (2.2-4.2); Glucose 88 mg/dL (74-106); Protein, Total 7.2 g/dL (6.4-8.2); Sodium Level 141 mmol/L (136-145)
[2018-05-30 09:16] VITALS: BP 125/77; PULSE 55; RESP 20; TEMP 36.4
[2018-05-30] MEDS: hydrOXYzine PAM 25 MG Capsule 50 MG PO ×2 (11:22→17:57)
[2018-05-30] MEDS: Methocarbamol 750 MG Tablet PO ×3 (11:22→23:12)
--- NOTE | 2018-05-30 12:07 | PN_ITS ---
Subjective: Patient was seen and examined. Denies any new complains except for restless leg. Feels slightly nauseous but no vomiting. Muscle aches have improved with treatment. Objective: General: Alert, Oriented x3, Cooperative, No apparent distress HEENT: Atraumatic, PERRLA, EOMI, Normocephalic Oral: Moist Mucosa Neck: Supple, No JVD, Negative Carotid Bruits Lungs: Clear to auscultation, Normal air movement Cardiovascular: Regular rate, Regular Rhythm, Normal S1, Normal S2, No murmurs Abdomen: Bowel Sounds Present, Soft, Non Tender, Non-Distended, No Hepato- splenomegaly Extremities: No edema Skin: No rashes, No breakdown Musculoskeletal: No Tenderness to Palpation of Joints or Extremities Lymphatic: No Cervical, Supraclavicular, or Inguinal Adenopathy Neurological: Cranial nerves II-XII grossly intact, Neuro grossly intact Psych/Mental Status: Normal Affect, Appropriate Vitals/I&O's: Vital Signs Temp Pulse Resp BP Pulse Ox 97.6 F L 55 L 20 H 125/77 H 99 05/30/18 09:16 05/30/18 09:16 05/30/18 09:16 05/30/18 09:16 05/29/18 16:22 Oxygen Delivery Method Room Air Weight: 77.11 kg Body Mass Index (BMI) 21.2 Intake and Output for Last 24 Hours 05/28/18 05/29/18 05/30/18 23:59 23:59 23:59 Intake Total 800 / 800 Balance 800 / 800 Laboratory Results 05/30/18 06:12: WBC 5.2, RBC 4.76, Hgb 13.7, Hct 42.5, MCV 89.3, MCH 28.8, MCHC 32.2, RDW 15.5 H, RDW Differential 50.3 H, Plt Count 174, MPV 11.8, Immature Gran % (Auto) 0.200, Neut % (Auto) 51.0, Lymph % (Auto) 34.0, [place] % (Auto) 6.9, Eos % (Auto) 6.9 H, Baso % (Auto) 1.0, Absolute Neuts (auto) 2.7, Absolute Lymphs (auto) 1.78, Total Counted Not Reportable 05/30/18 06:12: Sodium 141, Potassium 4.0, Chloride 112 H, Carbon Dioxide 22.0, Anion Gap 7, BUN 18, Creatinine 0.80, Estim Creat Clear Calc 105.76, Est GFR (MDRD) Af Amer 126, Est GFR (MDRD) Non-Af 104, BUN/Creatinine Ratio 22.5 H, Glucose 88, Calcium 8.3 L, Total Bilirubin 0.50, AST 28, ALT 26, Alkaline Phosphatase 90, Total Protein 7.2, Albumin 2.6 L, Globulin 4.6 H, Albumin/Globulin Ratio 0.6 L Current Medications Buprenorphine HCl (Buprenorphine Hcl) 2 mg SL Q12H ISMAEL; Taper Stop: 05/31/18 18:29 Last Admin: 05/30/18 05:46 Dose: 2 mg Clonidine (Catapres) 0.1 mg PO Q2H PRN PRN PRN Reason: Hot/Cold Sweats or Anxiety Dicyclomine HCl (Bentyl) 20 mg PO Q6H PRN PRN PRN Reason: Abdomnial Discomfort Last Admin: 05/29/18 02:20 Dose: 20 mg Hydroxyzine Pamoate (Vistaril Pamoate Capsule) 50 mg PO Q6H PRN PRN PRN Reason: Mild Anxiety Last Admin: 05/30/18 11:22 Dose: 50 mg Methocarbamol (Methocarbamol) 750 mg PO 4X/DAY PRN PRN Reason: MUSCLE SPASM Last Admin: 05/30/18 11:22 Dose: 750 mg Nicotine (Nicoderm Cq (Pbkc)) 21 mg TRANSDERM. DAILY ISMAEL Last Admin: 05/30/18 09:22 Dose: 21 mg Pramipexole Dihydrochloride (Mirapex) 0.25 mg PO Q12H PRN PRN PRN Reason: Restless Legs Last Admin: 05/30/18 05:46 Dose: 0.25 mg Quetiapine Fumarate (Seroquel) 25 mg PO Q6H PRN PRN Reason: AGITATION Last Admin: 05/29/18 22:49 Dose: 25 mg Medical Necessity - Tobacco Use Smoking Status: Heavy Smoker (>10/day) Assessment/Plan All Active Problems Withdrawal from opioids (Acute) 63-year-old male with past medical history of heroin dependency comes in with nausea, muscle aches, diarrhea, restless leg, for medical stabilization. He last used heroin 1 day prior to admission 1. Acute opioid withdrawal in a known heroin user, improving,will continue on [facility] protocol, continue to monitor 2. Nicotine dependency, advised to quit, on replacement 3. Anxiety/depression, not on any chronic home meds 4. DVT prophylaxis with early ambulation Code Visit Inpatient E&M: 72450 Subs Hosp L2
--- NOTE | 2018-05-30 12:54 | NURSING ---
1245 pt anxious about surgery, reassured pt and repositioned in bed. pre-op checklist updated. Jagdish Russell RN
[2018-05-30 14:00] VITALS: BP 107/70; PULSE 61; RESP 20; TEMP 36.4
[2018-05-30 18:00] VITALS: BP 110/59; PULSE 60; RESP 20; TEMP 36.6
[2018-05-30 20:28] VITALS: BP 137/90; PULSE 65; RESP 18; TEMP 37.2; O2SAT 98
[2018-05-30] MEDS: QUEtiapine 25 MG Tablet PO (23:12)
[2018-05-31 05:20] VITALS: BP 119/87; PULSE 64; RESP 18; TEMP 36.4
[2018-05-31] MEDS: Buprenorphine HCl 2 MG TAB.SUBL SL (05:28)
[2018-05-31] MEDS: cloNIDine HCl 0.1 MG Tablet PO (05:28)
[2018-05-31] MEDS: Methocarbamol 750 MG Tablet PO (05:28)
--- NOTE | 2018-05-31 07:16 | PCM.DC.SUM ---
Discharge Date and Diagnosis Date of Admission: 05/28/18 Date of Discharge: 05/31/18 - Primary Discharge Diagnosis Acute Opioid withdrawal Nicotine dependency - Secondary Discharge Diagnosis Chronic Problems Depression (Chronic) Anxiety (Chronic) Nicotine abuse (Chronic) Hospital Course and Treatment None Operations: None Procedures: None Summary of Care Provided: 63-year-old male with past medical history of heroin dependency comes in with nausea, muscle aches, diarrhea, restless leg, for medical stabilization. He last used heroin 1 day prior to admission. He was managed on the [facility] protocol with improvement. Patient was discharged to follow-up in the outpatient with the outpatient drug rehab program/[facility]. He was counseled to stop smoking and using heroin. Subjective: On the day of discharge, he had no complaints. Denies any dizziness or chest pain or shortness of breath. Objective: Physical exam: General: Alert, Oriented x3, Cooperative, No apparent distress HEENT: Atraumatic, PERRLA, EOMI, Normocephalic Oral: Moist Mucosa Neck: Supple, No JVD, Negative Carotid Bruits Lungs: Clear to auscultation, Normal air movement Cardiovascular: Regular rate, Regular Rhythm, Normal S1, Normal S2, No murmurs Abdomen: Bowel Sounds Present, Soft, Non Tender, Non-Distended, No Hepato-splenomegaly Extremities: No edema Skin: No rashes, No breakdown Musculoskeletal: No Tenderness to Palpation of Joints or Extremities Lymphatic: No Cervical, Supraclavicular, or Inguinal Adenopathy Neurological: Cranial nerves II-XII grossly intact, Neuro grossly intact Psych/Mental Status: Normal Affect, Appropriate - Physical Exam Vital Signs Temp Pulse Resp BP Pulse Ox 97.5 F L 64 18 119/87 H 98 05/31/18 05:20 05/31/18 05:20 05/31/18 05:20 05/31/18 05:20 05/30/18 20:28 Oxygen Delivery Method Room Air Weight: 77.11 kg Body Mass Index (BMI) 21.2 Discharge Diet: No Restrictions Discharge Activity: Return to Normal Activity Primary Care Physician: Care Physician,No Primary [Primary Care Provider] - Please follow up with your Primary Care Physician in: within 2 weeks of discharge Disposition: Home Minutes spent on discharge:: 25 Patient Condition:: Stable Medical Necessity - Tobacco Use Smoking Status: Heavy Smoker (>10/day) Tobacco Use: Cigarettes Meaningful Use Info Meaningful Use Diagnoses (Choose all that apply): None applicable Code Visit Inpatient E&M: 54423 Disch Hosp
--- NOTE | 2018-05-31 07:17 | DCINST_ITS ---
- Discharge Diagnoses Reason(s) for Visit for Discharge Instructions: Acute opioid withdrawal You will use the following diet at home:: Regular Your food should be the consistency of: Regular Your liquids should be the consistency of: Regular/Thin Discharge Activity: Return to Normal Activity Additional Instructions: You are advised to quit using opioids and smoking. Follow-up with your outpatient drug rehab program as planned. Allergies/Adverse Reactions: Allergies fluconazole [From Diflucan] Allergy (Intermediate, Verified 11/26/17 18:27) Hives Primary Care Physician: Care Physician,No Primary [Primary Care Provider] - Please follow up with your Primary Care Physician in: within 2 weeks of discharge Test Results: Test results from this visit will be discussed in further detail at your follow- up appointment, if applicable. Proposed Discharge Date: 05/31/18
[2018-05-31 10:15] VITALS: BP 134/85; PULSE 52; RESP 20; TEMP 36.6
[2018-05-31] MEDS: Dicyclomine 10 MG Capsule 20 MG PO (10:25)
[2018-05-31 13:44] VITALS: BP 120/87; PULSE 67; RESP 20; TEMP 36.6
[2018-05-31 13:45] VITALS: BP 120/87; PULSE 67; RESP 20; TEMP 36.6; O2SAT 99
== END 2018-05-31 13:55 | disposition home or self-care (01) | DRG 773 ==
PROVIDERS: Admitting Provider Internal Medicine; Referring Provider Internal Medicine; Visit Provider Internal Medicine
DX: F11.23 Opioid dependence with withdrawal (principal); F17.210 Nicotine dependence, cigarettes, uncomplicated; F41.9 Anxiety disorder, unspecified; F32.9 Major depressive disorder, single episode, unspecified
CPT/HCPCS: 36415; 80053; 85025; 97802

== ENCOUNTER 2018-09-30 14:19 | Inpatient (IN) | payer MEDICAID, SELFPAY ==
[2018-05-28 14:05] VITALS: BMI 21.2
[2018-09-30 14:47] VITALS: BMI 23.5
[2018-09-30 14:54] VITALS: BP 99/71; PULSE 76; RESP 18; TEMP 36.5; O2SAT 95
[2018-09-30 14:57] VITALS: BP 99/71; PULSE 76; RESP 18; TEMP 36.5
[2018-09-30] MEDS: Buprenorphine HCl 2 MG TAB.SUBL SL ×2 (15:31→22:13)
[2018-09-30] MEDS: chlordiazePOXIDE 25 MG Capsule PO ×3 (15:31→22:13)
--- NOTE | 2018-09-30 15:37 | HP.PCM_ITS ---
Problem List (1) Withdrawal from opioids Status: Acute (2) Depression Status: Chronic (3) Anxiety Status: Chronic (4) Nicotine abuse Status: Chronic History of Present Illness Date of Admission: 09/30/18 Chief Complaint: Opioid withdrawal symptoms since today The patient is a 63 year old M with chronic opioid use and multiple recurrent admissions in 2018 for heroin withdrawal stabilization is directly admitted on the floor for opioid withdrawal syndrome. Patient complain of restlessness, anxiety, lacrimation, muscle aches and pain and tremors. He denies diarrhea but had previous withdrawal symptoms. He has history of chronic hepatitis C depression, anxiety and emphysema. History of IV heroin use since age of 24. Uses 2 g daily, last use on 09/29/2018. He also smokes cigarettes about 1-2 pack daily, started at the age of 18. [] Past Medical History Past Medical History (Chronic Problems): Chronic Problems Depression (Chronic) Anxiety (Chronic) Nicotine abuse (Chronic) Allergies fluconazole [From Diflucan] Allergy (Intermediate, Verified 11/26/17 18:27) Hives Surgical History: - - back plate, lung cyst removed not cancer. Incision and drainage of the left upper extremity from a spider bite. Psychiatric History: Anxiety, Depression Smoking Status: Heavy Smoker (>10/day) - *Family History Maternal History Items: Cancer Paternal History Items: Heart Disease Review of Systems Constitutional: Denies: Chills, Fever, Weight Change HEENT: Denies: Head Aches, Sinus Congestion, Sinus Drainage Cardiovascular: Denies: Chest Pain, Palpitations Respiratory: Reports: Cough - Chronic cough but got worse for about 1 week. Denies: Shortness of breath at rest, Sputum production Gastrointestinal: Denies: Abdominal Pain, Nausea, Vomiting Genitourinary: Denies: Dysuria Musculoskeletal: Denies: Joint Pain, Joint Tenderness Skin: Denies: Rash, Wounds Neurological: Denies: Numbness, Tingling, Focal weakness Psychiatric: Reports: Anxiety, Depression. Denies: Homicidal Ideations, Suicidal Ideations Hematologic/ Lymphatic: Denies: Easy Bruising, Easy Bleeding VTE Information - Inpt Only VTE Present on Admission: No VTE Mechan Device Prophylaxis: None VTE Pharm Prophylaxis ordered?: Yes - Physical Exam General: Alert, Oriented x3, Cooperative HEENT: Atraumatic, PERRLA, EOMI, Normocephalic Oral: Dry Mucosa Neck: Supple, No JVD, Negative Carotid Bruits Lungs: Diminished - Air entry similarly diminished., Rhonchi Cardiovascular: Regular rate, Regular Rhythm, Normal S1, Normal S2, No murmurs Abdomen: Bowel Sounds Present, Soft, Non Tender Extremities: No edema, Capillary Refill Less than 3 Seconds Skin: No rashes, No breakdown Musculoskeletal: No Tenderness to Palpation of Joints or Extremities, Tenderness - Generalized muscle tenderness Lymphatic: No Cervical, Supraclavicular, or Inguinal Adenopathy Neurological: Cranial nerves II-XII grossly intact, Deep Tendon Reflexes 2+/4 and Symmetrical, Neuro grossly intact Psych/Mental Status: Normal Affect, Appropriate Vital Signs Temp Pulse Resp BP Pulse Ox 97.7 F L 76 18 99/71 95 09/30/18 14:57 09/30/18 14:57 09/30/18 14:57 09/30/18 14:57 09/30/18 14:54 Oxygen Delivery Method Room Air Weight: 188 lb 4.396 oz Body Mass Index (BMI) 23.5 Assessment/Plan All Active Problems Withdrawal from opioids (Acute) The patient is a 63 year old M with chronic opioid use and multiple recurrent admissions in 2018 for heroin withdrawal stabilization is directly admitted on the floor for opioid withdrawal syndrome. Patient complain of restlessness, anxiety, lacrimation, muscle aches and pain and tremors. He denies diarrhea but had previous withdrawal symptoms. He has history of chronic hepatitis C depression, anxiety and emphysema. She has also chronic cough but got worse for last 1 week which is dry in nature. History of IV heroin use since age of 24. Uses 2 g daily, last use on 09/29/2018. He also smokes cigarettes about 1-2 pack daily, started at the age of 18. 1. Acute opioid withdrawal syndrome with history of chronic opioid use and dependence: Patient is being admitted as per protocol of [facility] for medical stabilization. Labs ordered and reviewed. On medication protocol as per [facility]. 2. COPD: Stable. Flu test is being ordered. Chest x-ray PA and lateral ordered. DuoNeb every 4 hourly as needed for shortness of breath. Mucinex and incentive spirometry. Patient is not hypoxic or tachypneic. 3. Chronic nicotine use and dependence: On nicotine patch. Drug cessation and smoking cessation counseling done. 4. Mild hypokalemia: Potassium replaced. Check magnesium and phosphorus. Monitor BMP tomorrow a.m. Other comorbidities include chronic hepatitis C, anxiety and depression: DVT prophylaxis on Lovenox 40 mg subcu daily. Patient has mild thrombocytopenia. Platelet count is 132,000. Discontinue if platelet count drops less than 90,000 or hemoglobin less than 8 g%. Monitor CBC tomorrow a.m. [] Laboratory Results 09/30/18 15:45: WBC 9.0, RBC 4.41 L, Hgb 13.6, Hct 39.8 L, MCV 90.2, MCH 30.8, MCHC 34.2, RDW 14.1, RDW Differential 46.8 H, Plt Count 132 L, MPV 11.9, Immature Gran % (Auto) 0.300, Neut % (Auto) 90.4 H, Lymph % (Auto) 3.1 L, [place] % (Auto) 5.8, Eos % (Auto) 0.2, Baso % (Auto) 0.2, Absolute Neuts (auto) 8.1 H, Absolute Lymphs (auto) 0.28 L, Total Counted Not Reportable, Differential Comment SCANNED 09/30/18 15:45: PT 15.6 H, INR 1.2 09/30/18 15:45: Sodium 137, Potassium 3.2 L, Chloride 107, Carbon Dioxide 20.0 L , Anion Gap 10, BUN 15, Creatinine 0.95, Estim Creat Clear Calc 97.60, Est GFR (MDRD) Af Amer 104, Est GFR (MDRD) Non-Af 86, BUN/Creatinine Ratio 15.8, Glucose 98, Calcium 8.0 L, Total Bilirubin 1.10 H, AST 42 H, ALT 46, Alkaline Phosphatase 84, Total Protein 7.0, Albumin 3.0 L, Globulin 4.0, Albumin/Globulin Ratio 0.8 L, Amylase 40, Lipase 66 L 09/30/18 15:45: Ethyl Alcohol 8.0 Code Visit Inpatient E&M: 39434 Init Hosp L3
[2018-09-30 16:10] LABS: Absolute Lymphocyte Count 0.28 X10^3/ul (0.83-4.51); Absolute Neutrophil Count 8.1 X10^3/uL (2.0-7.7); Basophil# 0.02 X10^3/uL; Basophil% 0.2 % (0-1); Differential Indicated SCAN CRITERIA MET; Eosinophil# 0.02 X10^3/uL; Eosinophils% 0.2 % (0-5); Hematocrit 39.8 % (40-54); Hemoglobin 13.6 g/dl (13.0-16.5); Lymphocyte # 0.28 X10^3/ul (4.0); Lymphocyte % 3.1 % (19-41); Mean Corp Hgb Conc 34.2 g/gl (32-36); Mean Corpuscular Hgb 30.8 pg (27.0-32.0); Mean Corpuscular Volume 90.2 fL (80-94); Mean Platelet Vol. 11.9 fl (6.2-12.0); Monocyte# 0.52 X10^3/uL; Monocyte% 5.8 % (0-10); Neutrophil # 8.13 X10^3/uL (2.7-7.7); Neutrophil % 90.4 % (47-70); POSITIVE COUNT NO; POSITIVE DIFFERENTIAL YES; POSITIVE MORPHOLOGY NO; Platelet Count 132 K/mm3 (150-450); RBC Distribution Width CV 14.1 % (11.6-14.6); RBC Distribution Width SD 46.8 fl (35.1-43.9); Red Blood Count 4.41 M/mm3 (4.6-6.2)
[2018-09-30 16:11] LABS: International Normalized Ratio 1.2; Prothrombin Time (Protime)PT. 15.6 SECONDS (11.7-14.9)
[2018-09-30 16:12] LABS: ALB/GLOB Ratio 0.8 RATIO (0.9-2.4); AST(SGOT) 42 U/L (15-37); Alanine Aminotransfer ALT/SGPT 46 U/L (16-61); Alkaline Phosphatase 84 U/L (45-117); Amylase 40 U/L (25-115); Anion Gap 10 (5-15); BUN 15 mg/dL (7-18); BUN/Creat Ratio 15.8 RATIO (10-20); Chloride 107 mmol/L (98-107); Creatinine, Serum 0.95 mg/dL (0.70-1.30); EST Glomerular Filtration Rate 86 mL/min (>60); Est Glom Filt Rate - Afr Amer 104 mL/min (>60); Glucose 98 mg/dL (74-106); Lipase 66 U/L (73-393); Potassium 3.2 mmol/L (3.5-5.1); Sodium Level 137 mmol/L (136-145)
[2018-09-30 16:43] LABS: Differential Comment SCANNED
--- NOTE | 2018-09-30 18:00 | RAD_ITS ---
STUDY: X-RAY CHEST REASON FOR EXAM: Male, 63 years old. Cough COPD TECHNIQUE: Frontal and lateral views COMPARISON: None. FINDINGS: The lungs are hyperaerated. Mild right apical pleural thickening with calcifications. Normal size heart. Normal mediastinum and dallin. Normal visualized pulmonary arteries. Normal visualized aortic arch and descending thoracic aorta. Scoliosis of the thoracic spine. Old right rib fractures. There is no demonstrated abnormality of the visualized soft tissue structures of the upper abdomen. RAD/Chest PA and Lateral IMPRESSION: Hyperaerated lungs. Right apical pleural thickening with calcifications. Electronically Signed: Terrance Romero DO at 19:31 EST Tel [phone], Service support ,
[2018-09-30 18:20] LABS: Magnesium 1.5 mg/dL (1.6-2.6)
[2018-09-30 18:27] VITALS: BP 109/71; PULSE 78; RESP 18; TEMP 36.6
[2018-09-30] MEDS: Pramipexole Di-HCl 0.25 MG Tablet PO (18:34)
[2018-09-30] MEDS: Enoxaparin 40 MG/0.4 ML Syringe SC (18:34)
[2018-09-30] MEDS: Ondansetron ODT 4 MG Tablet PO (18:34)
[2018-09-30] MEDS: Methocarbamol 750 MG Tablet PO (18:34)
[2018-09-30] MEDS: Acetaminophen 500 MG Tablet PO (18:34)
[2018-09-30] MEDS: Tuberculin,Purif.prot.deriv. 50 TU/ML Vial 5 ML ID (19:16)
[2018-09-30 19:51] LABS: Bacteria 0 SEEN /hpf (None Seen); Mucous, Urine 0 SEEN /hpf (<or=2+); Red Blood Cells-Urine 0 SEEN /hpf (0-5); Squamous Epithelial Cells - UA 0 SEEN /hpf (0-5); White Blood Cells 0 SEEN /hpf (0-5)
[2018-09-30 19:53] LABS: Color, Urine Yellow (Yellow); Glucose, Dipstick Normal (Normal); Ketone-Dipstick Negative (Negative); Leukocyte Esterase-Dipstick Negative /ul (Negative); Nitrite-Dipstick Negative (Negative); Occult Blood-Urine Negative /ul (Negative); Protein-Dipstick Negative (Negative); Urine Bilirubin Dipstick Negative (Negative); Urine Clarity Clear (Clear); Urine Urobilinogen Normal (Normal)
[2018-09-30 21:18] LABS: Amphetamine Urine VISTA NEGATIVE (<1000 ng/mL); Barbiturate Urine VISTA NEGATIVE (< 200 ng/mL); Benzodiazepine Urine VISTA NEGATIVE (< 200 ng/mL); Cocaine Urine VISTA NEGATIVE (< 300 ng/mL); Ecstacy Urine VISTA NEGATIVE (< 500 ng/mL); Methadone Urine VISTA NEGATIVE (< 300 ng/mL); PCP Urine VISTA NEGATIVE (< 25 ng/mL); THC Urine VISTA NEGATIVE (< 50 ng/mL); Vista UDS pH Range 6
[2018-09-30 22:10] VITALS: BP 103/73; PULSE 56; RESP 16; TEMP 36.3
[2018-09-30] MEDS: traZODone 50 MG Tablet PO (22:13)
[2018-09-30] MEDS: guaiFENesin 1,200 MG Tablet 1200 MG PO (22:13)
[2018-09-30] MEDS: Ibuprofen 600 MG Tablet PO (22:13)
[2018-09-30] MEDS: Dicyclomine 10 MG Capsule 20 MG PO (22:14)
[2018-10-01] MEDS: chlordiazePOXIDE 25 MG Capsule PO ×3 (02:51→11:24)
[2018-10-01] MEDS: Methocarbamol 750 MG Tablet PO ×2 (02:52→09:53)
[2018-10-01] MEDS: Acetaminophen 500 MG Tablet PO ×2 (02:52→15:29)
[2018-10-01 02:55] VITALS: BP 102/69; PULSE 89; RESP 18; TEMP 36.1
[2018-10-01] MEDS: Dicyclomine 10 MG Capsule 20 MG PO (06:43)
[2018-10-01] MEDS: Ibuprofen 600 MG Tablet PO (06:43)
[2018-10-01] MEDS: Buprenorphine HCl 2 MG TAB.SUBL SL ×3 (06:43→22:55)
[2018-10-01] MEDS: Pramipexole Di-HCl 0.25 MG Tablet PO ×2 (06:43→21:06)
[2018-10-01 06:50] VITALS: BP 126/85; PULSE 55; RESP 16; TEMP 36.1
--- NOTE | 2018-10-01 07:01 | PCM.PROGNOTE ---
Subjective: Mr Garland is a 63-year-old male with a history of depression/anxiety, tobacco dependence, hepatitis C, COPD and narcotic dependence. He has been using heroin since the age of 24 and uses 2 g daily. His last used was on 09/29/2018. He had 2 admissions to the [facility] at [facility] in 2018 for heroin withdrawal. Admission lab showed Potassium was low at 3.2 and the magnesium was low at 1.5. Bilirubin was mildly elevated at 1.1 and the transaminases were unremarkable. Chest x-ray showed hyperinflation with flattened diaphragms secondary to COPD. His most recent admission was in May 2018 and at that time he elected to follow-up as an outpatient with 180. He was admitted to the [facility] program and the opioid withdrawal protocol was initiated. A nicotine patch was provided. Smoking cessation counseling was given. All events the past 24 hours of been reviewed. Afebrile since admission. Vital signs are stable. Denies nausea, vomiting, diarrhea, restless leg, muscle cramps. He is mildly tremulous. Objective: PHYSICAL EXAM: GENERAL: alert, oriented X 3, Cooperative, NAD, looks older than his stated age ORAL: moist mucosa, no mucosal lesions NECK: No JVD, supple, trachea midline LUNGS: CTA, symmetric chest expansion, diminished, scattered rhonchi HEART: RRR, Normal S1 and S2, no rub, no gallop, no murmur ABDOMEN: soft, NT, ND, BS present, no guarding with palpation EXTREMITIES: no edema, no cyanosis, no calf tenderness SKIN: No rashes, no breakdown NEUROLOGIC: no focal neurologic deficits PSYCH: appropriate, normal affect, pleasant - Physical Exam Vital Signs Temp Pulse Resp BP Pulse Ox 96.9 F L 55 L 16 126/85 H 95 10/01/18 06:50 10/01/18 06:50 10/01/18 06:50 10/01/18 06:50 09/30/18 14:54 Oxygen Delivery Method Room Air Weight: 188 lb 4.396 oz Body Mass Index (BMI) 23.5 Intake and Output for Last 24 Hours 09/29/18 09/30/18 10/01/18 23:59 23:59 23:59 Intake Total 900 / 900 Balance 900 / 900 Laboratory Tests Past 24 Hrs 09/30/18 09/30/18 09/30/18 15:45 15:45 15:45 WBC 9.0 RBC 4.41 L Hgb 13.6 Hct 39.8 L MCV 90.2 MCH 30.8 MCHC 34.2 RDW 14.1 RDW Differential 46.8 H Plt Count 132 L MPV 11.9 Immature Gran % (Auto) 0.300 Neut % (Auto) 90.4 H Lymph % (Auto) 3.1 L [place] % (Auto) 5.8 Eos % (Auto) 0.2 Baso % (Auto) 0.2 Absolute Neuts (auto) 8.1 H Absolute Lymphs (auto) 0.28 L Total Counted Not Reportable Differential Comment SCANNED PT 15.6 H INR 1.2 Sodium 137 Potassium 3.2 L Chloride 107 Carbon Dioxide 20.0 L Anion Gap 10 BUN 15 Creatinine 0.95 Estim Creat Clear Calc 97.60 Est GFR (MDRD) Af Amer 104 Est GFR (MDRD) Non-Af 86 BUN/Creatinine Ratio 15.8 Glucose 98 Calcium 8.0 L Magnesium Total Bilirubin 1.10 H AST 42 H ALT 46 Alkaline Phosphatase 84 Total Protein 7.0 Albumin 3.0 L Globulin 4.0 Albumin/Globulin Ratio 0.8 L Amylase 40 Lipase 66 L Urine Color Urine Clarity Urine pH Ur Specific Balm Urine Protein Urine Glucose (UA) Urine Ketones Urine Occult Blood Urine Nitrite Urine Bilirubin Urine Urobilinogen Ur Leukocyte Esterase Urine RBC Urine WBC Ur Squamous Epith Cells Urine Bacteria Urine Mucus Urine Opiates Screen Urine Methadone Screen Ur Barbiturates Screen Ur Phencyclidine Scrn Ur Amphetamines Screen U Methamphetamin-MDMA U Benzodiazepines Scrn Urine Cocaine Screen U Cannabinoids Screen Ur Drug Screen Comment Ethyl Alcohol 09/30/18 09/30/18 09/30/18 15:45 15:45 19:20 WBC RBC Hgb Hct MCV MCH MCHC RDW RDW Differential Plt Count MPV Immature Gran % (Auto) Neut % (Auto) Lymph % (Auto) [place] % (Auto) Eos % (Auto) Baso % (Auto) Absolute Neuts (auto) Absolute Lymphs (auto) Total Counted Differential Comment PT INR Sodium Potassium Chloride Carbon Dioxide Anion Gap BUN Creatinine Estim Creat Clear Calc Est GFR (MDRD) Af Amer Est GFR (MDRD) Non-Af BUN/Creatinine Ratio Glucose Calcium Magnesium 1.5 L Total Bilirubin AST ALT Alkaline Phosphatase Total Protein Albumin Globulin Albumin/Globulin Ratio Amylase Lipase Urine Color Urine Clarity Urine pH Ur Specific Balm Urine Protein Urine Glucose (UA) Urine Ketones Urine Occult Blood Urine Nitrite Urine Bilirubin Urine Urobilinogen Ur Leukocyte Esterase Urine RBC Urine WBC Ur Squamous Epith Cells Urine Bacteria Urine Mucus Urine Opiates Screen POSITIVE H Urine Methadone Screen NEGATIVE Ur Barbiturates Screen NEGATIVE Ur Phencyclidine Scrn NEGATIVE Ur Amphetamines Screen NEGATIVE U Methamphetamin-MDMA NEGATIVE U Benzodiazepines Scrn NEGATIVE Urine Cocaine Screen NEGATIVE U Cannabinoids Screen NEGATIVE Ur Drug Screen Comment Ethyl Alcohol 8.0 09/30/18 19:20 WBC RBC Hgb Hct MCV MCH MCHC RDW RDW Differential Plt Count MPV Immature Gran % (Auto) Neut % (Auto) Lymph % (Auto) [place] % (Auto) Eos % (Auto) Baso % (Auto) Absolute Neuts (auto) Absolute Lymphs (auto) Total Counted Differential Comment PT INR Sodium Potassium Chloride Carbon Dioxide Anion Gap BUN Creatinine Estim Creat Clear Calc Est GFR (MDRD) Af Amer Est GFR (MDRD) Non-Af BUN/Creatinine Ratio Glucose Calcium Magnesium Total Bilirubin AST ALT Alkaline Phosphatase Total Protein Albumin Globulin Albumin/Globulin Ratio Amylase Lipase Urine Color Yellow Urine Clarity Clear Urine pH 6.0 Ur Specific Balm 1.010 Urine Protein Negative Urine Glucose (UA) Normal Urine Ketones Negative Urine Occult Blood Negative Urine Nitrite Negative Urine Bilirubin Negative Urine Urobilinogen Normal Ur Leukocyte Esterase Negative Urine RBC 0 SEEN Urine WBC 0 SEEN Ur Squamous Epith Cells 0 SEEN Urine Bacteria 0 SEEN Urine Mucus 0 SEEN Urine Opiates Screen Urine Methadone Screen Ur Barbiturates Screen Ur Phencyclidine Scrn Ur Amphetamines Screen U Methamphetamin-MDMA U Benzodiazepines Scrn Urine Cocaine Screen U Cannabinoids Screen Ur Drug Screen Comment Ethyl Alcohol Medical Necessity - Tobacco Use Smoking Status: Heavy Smoker (>10/day) Assessment/Plan All Active Problems Withdrawal from opioids (Acute) Impressions 1. Acute narcotic withdrawal 2. Intravenous drug abuse with heroin 3. Tobacco dependence 4. COPD 5. Hypokalemia -supplement ordered 40 mEq of p.o. potassium 9 Continue the [facility] protocol for opioid withdrawal -with buprenorphine Code Visit Inpatient E&M: 31584 Subs Hosp L2
[2018-10-01 08:10] LABS: Anion Gap 6 (5-15); BUN 25 mg/dL (7-18); BUN/Creat Ratio 26.7 RATIO (10-20); Chloride 112 mmol/L (98-107); Creatinine, Serum 0.94 mg/dL (0.70-1.30); EST Glomerular Filtration Rate 87 mL/min (>60); Est Glom Filt Rate - Afr Amer 105 mL/min (>60); Estimated Creatinine Clearance 98.63 ml/min; Glucose 105 mg/dL (74-106); Phosphorus 2.5 mg/dL (2.5-4.9); Potassium 3.4 mmol/L (3.5-5.1); Sodium Level 143 mmol/L (136-145)
[2018-10-01 08:13] LABS: Absolute Lymphocyte Count 1.18 X10^3/ul (0.83-4.51); Absolute Neutrophil Count 3.3 X10^3/uL (2.0-7.7); Basophil# 0.03 X10^3/uL; Basophil% 0.5 % (0-1); Eosinophil# 0.34 X10^3/uL; Hematocrit 39.3 % (40-54); Lymphocyte # 1.18 X10^3/ul (4.0); Mean Corp Hgb Conc 33.1 g/gl (32-36); Mean Corpuscular Hgb 30.4 pg (27.0-32.0); Mean Platelet Vol. 12.1 fl (6.2-12.0); Monocyte% 14.2 % (0-10); Neutrophil # 3.27 X10^3/uL (2.7-7.7); Neutrophil % 58.3 % (47-70); POSITIVE COUNT NO; POSITIVE DIFFERENTIAL NO; POSITIVE MORPHOLOGY NO; Platelet Count 142 K/mm3 (150-450); RBC Distribution Width CV 14.5 % (11.6-14.6); RBC Distribution Width SD 48.9 fl (35.1-43.9); Red Blood Count 4.27 M/mm3 (4.6-6.2); White Blood Count 5.6 K/mm3 (4.4-11.0)
[2018-10-01 09:51] VITALS: BP 101/66; PULSE 55; RESP 18; TEMP 36.9
[2018-10-01] MEDS: guaiFENesin 1,200 MG Tablet 1200 MG PO ×2 (09:53→21:06)
[2018-10-01] MEDS: hydrOXYzine PAM 25 MG Capsule 50 MG PO ×2 (09:53→21:06)
[2018-10-01] MEDS: Enoxaparin 40 MG/0.4 ML Syringe SC (09:54)
[2018-10-01 15:39] VITALS: BP 122/75; PULSE 52; RESP 14; TEMP 37
[2018-10-01] MEDS: traZODone 50 MG Tablet PO (21:06)
[2018-10-01 21:11] VITALS: BP 130/78; PULSE 56; RESP 18; TEMP 36.5
[2018-10-01 21:13] VITALS: PULSE 56
[2018-10-02 06:00] VITALS: BP 143/86; PULSE 53; RESP 20; TEMP 36.9
[2018-10-02] MEDS: Methocarbamol 750 MG Tablet PO ×2 (06:14→16:50)
[2018-10-02] MEDS: hydrOXYzine PAM 25 MG Capsule 50 MG PO ×2 (06:14→16:50)
[2018-10-02] MEDS: Buprenorphine HCl 2 MG TAB.SUBL SL ×2 (06:15→18:47)
[2018-10-02] MEDS: Dicyclomine 10 MG Capsule 20 MG PO (06:15)
[2018-10-02] MEDS: Ondansetron ODT 4 MG Tablet PO (06:15)
--- NOTE | 2018-10-02 08:10 | PN_ITS ---
Subjective: 63-year-old male admitted to the [facility] program for medical stabilization for acute withdrawal from opiates. Currently on a Suboxone taper. All events of the past 24 hours of been reviewed. Afebrile since admission, vital signs are stable. Poor oral intake on 10/01/2018-only 300 cc. Overnight he took 700 cc. He is c/o restless leg and nausea but has not had emesis. Appetite is still decreased. No diarrhea and no agitated behavior. Objective: GENERAL: alert, oriented X 3, Cooperative, NAD, looks older than his stated age, laying in bed ORAL: moist mucosa, no mucosal lesions NECK: No JVD, supple, trachea midline LUNGS: CTA, symmetric chest expansion, diminished, scattered rhonchi HEART: RRR, Normal S1 and S2, no rub, no gallop, no murmur ABDOMEN: soft, NT, ND, BS present, no guarding with palpation EXTREMITIES: no edema, no cyanosis, no calf tenderness SKIN: No rashes, no breakdown NEUROLOGIC: no focal neurologic deficits PSYCH: appropriate, normal affect, pleasant - Physical Exam Vital Signs Temp Pulse Resp BP Pulse Ox 98.4 F 53 L 20 H 143/86 H 95 10/02/18 06:00 10/02/18 06:00 10/02/18 06:00 10/02/18 06:00 09/30/18 14:54 Oxygen Delivery Method Room Air Weight: 188 lb 4.396 oz Body Mass Index (BMI) 23.5 Intake and Output for Last 24 Hours 09/30/18 10/01/18 10/02/18 23:59 23:59 23:59 Intake Total 900 / 900 300 / 300 700 / 700 Balance 900 / 900 300 / 300 700 / 700 Microbiology Past 72 Hours 09/30/18 20:15 - Final Mucosa - Nasopharyngeal Laboratory Tests Past 24 Hrs 10/01/18 10/01/18 07:37 07:37 WBC 5.6 RBC 4.27 L Hgb 13.0 Hct 39.3 L MCV 92.0 MCH 30.4 MCHC 33.1 RDW 14.5 RDW Differential 48.9 H Plt Count 142 L MPV 12.1 H Immature Gran % (Auto) 0.000 Neut % (Auto) 58.3 Lymph % (Auto) 21.0 [place] % (Auto) 14.2 H Eos % (Auto) 6.0 H Baso % (Auto) 0.5 Absolute Neuts (auto) 3.3 Absolute Lymphs (auto) 1.18 Total Counted Not Reportable Sodium 143 Potassium 3.4 L Chloride 112 H Carbon Dioxide 25.0 Anion Gap 6 BUN 25 H Creatinine 0.94 Estim Creat Clear Calc 98.63 Est GFR (MDRD) Af Amer 105 Est GFR (MDRD) Non-Af 87 BUN/Creatinine Ratio 26.7 H Glucose 105 Calcium 8.0 L Phosphorus 2.5 Medical Necessity - Tobacco Use Smoking Status: Heavy Smoker (>10/day) Assessment/Plan All Active Problems Withdrawal from opioids (Acute) Impressions 1. Acute narcotic withdrawal 2. Intravenous drug abuse with heroin 3. Tobacco dependence 4. COPD 5. Hypokalemia -supplement ordered Recheck lab in the a.m. Continue the [facility] protocol for opiate withdrawal Code Visit Inpatient E&M: 35933 Subs Hosp L2
--- NOTE | 2018-10-02 09:51 | NEWVISION ---
Patient has been accepted into [facility] inpatient residential rehabilitation program, [facility]. Patient will arrive for admission into rehab on Friday10-05-18 at 11:00am.
[2018-10-02 10:51] VITALS: BP 113/74; PULSE 52; RESP 18; TEMP 36.7
[2018-10-02] MEDS: Enoxaparin 40 MG/0.4 ML Syringe SC (10:53)
[2018-10-02] MEDS: guaiFENesin 1,200 MG Tablet 1200 MG PO ×2 (10:54→22:05)
[2018-10-02] MEDS: Pramipexole Di-HCl 0.25 MG Tablet PO (10:58)
[2018-10-02] MEDS: chlordiazePOXIDE 25 MG Capsule PO ×2 (10:58→20:52)
[2018-10-02 16:34] VITALS: BP 125/81; PULSE 53; RESP 18; TEMP 37.1
[2018-10-02] MEDS: Ibuprofen 600 MG Tablet PO (16:50)
[2018-10-02] MEDS: Ipratropium/Albuterol Sulfate 3 ML AMPUL.NEB INHALATION (17:11)
[2018-10-02 17:12] VITALS: PULSE 52; RESP 18
[2018-10-02 18:53] VITALS: BP 102/70; PULSE 63; RESP 18; TEMP 36.4
[2018-10-02 20:37] VITALS: BP 104/65; PULSE 56; RESP 18; TEMP 36.2
[2018-10-02] MEDS: traZODone 50 MG Tablet PO (22:05)
[2018-10-03 01:07] VITALS: BP 117/74; PULSE 58; RESP 18; TEMP 36.3
[2018-10-03] MEDS: Ibuprofen 600 MG Tablet PO (06:33)
[2018-10-03] MEDS: Methocarbamol 750 MG Tablet PO ×2 (06:33→16:38)
[2018-10-03] MEDS: Buprenorphine HCl 2 MG TAB.SUBL SL (06:33)
[2018-10-03] MEDS: Pramipexole Di-HCl 0.25 MG Tablet PO (06:33)
[2018-10-03 08:12] LABS: Hemoglobin 13.8 g/dl (13.0-16.5); Mean Corp Hgb Conc 32.9 g/gl (32-36); Mean Corpuscular Hgb 30.2 pg (27.0-32.0); Mean Corpuscular Volume 91.9 fL (80-94); Mean Platelet Vol. 11.6 fl (6.2-12.0); Platelet Count 137 K/mm3 (150-450); RBC Distribution Width CV 14.5 % (11.6-14.6); RBC Distribution Width SD 48.9 fl (35.1-43.9); Red Blood Count 4.57 M/mm3 (4.6-6.2); Scan Indicated on CBC? Y/N NO; White Blood Count 4.7 K/mm3 (4.4-11.0)
--- NOTE | 2018-10-03 08:15 | PCM.PROGNOTE ---
Subjective: All events of the past 24 hours of been reviewed. Afebrile since admission. Vital signs are stable. No tachycardia. On the lab was personally reviewed. Leg lengths are mildly decreased at 137,000 but stable. Hemoglobin is within normal limits and so is the white blood cell count. BMP is still pending - Physical Exam Vital Signs Temp Pulse Resp BP Pulse Ox 97.3 F L 58 L 18 117/74 95 10/03/18 01:07 10/03/18 01:07 10/03/18 01:07 10/03/18 01:07 09/30/18 14:54 Oxygen Delivery Method Room Air Weight: 188 lb 4.396 oz Body Mass Index (BMI) 23.5 Intake and Output for Last 24 Hours 10/01/18 10/02/18 10/03/18 23:59 23:59 23:59 Intake Total 300 / 300 1400 / 1400 500 / 500 Balance 300 / 300 1400 / 1400 500 / 500 Microbiology Past 72 Hours 09/30/18 20:15 - Final Mucosa - Nasopharyngeal Laboratory Tests Past 24 Hrs 10/03/18 10/03/18 08:00 08:00 WBC 4.7 RBC 4.57 L Hgb 13.8 Hct 42.0 MCV 91.9 MCH 30.2 MCHC 32.9 RDW 14.5 RDW Differential 48.9 H Plt Count 137 L MPV 11.6 Sodium Pending Potassium Pending Chloride Pending Carbon Dioxide Pending Anion Gap Pending BUN Pending Creatinine Pending Est GFR (MDRD) Af Amer Pending Est GFR (MDRD) Non-Af Pending BUN/Creatinine Ratio Pending Glucose Pending Calcium Pending Magnesium Pending Medical Necessity - Tobacco Use Smoking Status: Heavy Smoker (>10/day) Assessment/Plan All Active Problems Withdrawal from opioids (Acute)
[2018-10-03 08:28] LABS: Anion Gap 8 (5-15); BUN 21 mg/dL (7-18); BUN/Creat Ratio 29.8 RATIO (10-20); Calcium,Total 8.1 mg/dL (8.5-10.1); Chloride 114 mmol/L (98-107); EST Glomerular Filtration Rate 121 mL/min (>60); Est Glom Filt Rate - Afr Amer 146 mL/min (>60); Estimated Creatinine Clearance 132.45 ml/min; Glucose 90 mg/dL (74-106); Magnesium 1.8 mg/dL (1.6-2.6); Potassium 3.8 mmol/L (3.5-5.1); Sodium Level 144 mmol/L (136-145)
[2018-10-03 09:16] VITALS: BP 115/79; PULSE 50; RESP 16; TEMP 36.8
[2018-10-03] MEDS: Acetaminophen 500 MG Tablet PO ×2 (09:33→16:34)
[2018-10-03] MEDS: hydrOXYzine PAM 25 MG Capsule 50 MG PO (09:33)
[2018-10-03] MEDS: chlordiazePOXIDE 25 MG Capsule PO (09:33)
[2018-10-03] MEDS: guaiFENesin 1,200 MG Tablet 1200 MG PO (09:36)
[2018-10-03 13:40] VITALS: BP 126/89; PULSE 50; RESP 18; TEMP 36.7
[2018-10-03 17:04] VITALS: BP 142/80; PULSE 52; RESP 18; TEMP 36.7
--- NOTE | 2018-10-03 17:36 | PCM.DC ---
You will use the following diet at home:: No restrictions Your food should be the consistency of: Regular Your liquids should be the consistency of: Regular/Thin Discharge Activity: Return to Normal Activity Call your doctor if you observe: Fever of 101 or Higher Additional Instructions: 1. I have given you a prescription for a medication called Clonidine to take every 8 nhours for the next 2 days until you get checked in at [facility]. This medication helps to decrease the cravings for heroin. 2. Stay away from your friends who are using drugs to keep yourself from being tempted over the weekend. 3. Good luck to you Nghia......your intake at [facility] is scheduled for Friday at 11 AM. Allergies/Adverse Reactions: Allergies fluconazole [From Diflucan] Allergy (Intermediate, Verified 11/26/17 18:27) Hives Medications to take at Discharge Clonidine HCl [Catapres] 0.1 mg PO Q8H #6 tab 10/03/18 The following prescriptions were given: Clonidine HCl [Catapres] 0.1 mg PO Q8H #6 tab Primary Care Physician: Care Physician,No Primary [Primary Care Provider] - Test Results: Test results from this visit will be discussed in further detail at your follow-up appointment, if applicable. Proposed Discharge Date: 10/03/18
--- NOTE | 2018-10-03 17:40 | DCINST_ITS ---
You will use the following diet at home:: No restrictions Your food should be the consistency of: Regular Your liquids should be the consistency of: Regular/Thin Discharge Activity: Return to Normal Activity Call your doctor if you observe: Fever of 101 or Higher Additional Instructions: 1. I have given you a prescription for a medication called Clonidine to take every 8 nhours for the next 2 days until you get checked in at [facility]. This medication helps to decrease the cravings for heroin. 2. Stay away from your friends who are using drugs to keep yourself from being tempted over the weekend. 3. Good luck to you Nghia......your intake at [facility] is scheduled for Friday at 11 AM. Allergies/Adverse Reactions: Allergies fluconazole [From Diflucan] Allergy (Intermediate, Verified 11/26/17 18:27) Hives Medications to take at Discharge Clonidine HCl [Catapres] 0.1 mg PO Q8H #6 tab 10/03/18 The following prescriptions were given: Clonidine HCl [Catapres] 0.1 mg PO Q8H #6 tab Primary Care Physician: Care Physician,No Primary [Primary Care Provider] - Test Results: Test results from this visit will be discussed in further detail at your follow- up appointment, if applicable. Proposed Discharge Date: 10/03/18
--- NOTE | 2018-10-13 06:28 | PCM.DC.SUM ---
Discharge Date and Diagnosis Date of Admission: 09/30/18 Date of Discharge: 10/03/18 - Primary Discharge Diagnosis Acute opiate withdrawal Hypokalemia - Secondary Discharge Diagnosis Chronic Problems Depression (Chronic) Anxiety (Chronic) Nicotine abuse (Chronic) Opiate dependence/IVDA COPD Hospital Course and Treatment Imaging Results: Clinical Impression(s) from Imaging Studies Chest X-Ray 09/30/18 18:00 IMPRESSION: Hyperaerated lungs. Right apical pleural thickening with calcifications. Electronically Signed: Terrance Romero DO at 19:31 EST Tel [phone], Service support , Laboratory Tests 10/03/18 10/03/18 10/01/18 Range/Units 08:00 08:00 07:37 WBC 4.7 5.6 (4.4-11.0) K/mm3 RBC 4.57 L 4.27 L (4.6-6.2) M/mm3 Hgb 13.8 13.0 (13.0-16.5) g/dl Hct 42.0 39.3 L (40-54) % MCV 91.9 92.0 (80-94) fL MCH 30.2 30.4 (27.0-32.0) pg MCHC 32.9 33.1 (32-36) g/gl RDW 14.5 14.5 (11.6-14.6) % RDW Differential 48.9 H 48.9 H (35.1-43.9) fl Plt Count 137 L 142 L (150-450) K/mm3 MPV 11.6 12.1 H (6.2-12.0) fl Immature Gran % (Auto) 0.000 (0.0-0.9) % Neut % (Auto) 58.3 (47-70) % Lymph % (Auto) 21.0 (19-41) % Evans % (Auto) 14.2 H (0-10) % Eos % (Auto) 6.0 H (0-5) % Baso % (Auto) 0.5 (0-1) % Absolute Neuts (auto) 3.3 (2.0-7.7) X10^3/uL Absolute Lymphs (auto) 1.18 (0.83-4.51) X10^3/ul Total Counted Not Reportable Differential Comment PT (11.7-14.9) SECONDS INR Sodium 144 (136-145) mmol/L Potassium 3.8 (3.5-5.1) mmol/L Chloride 114 H (98-107) mmol/L Carbon Dioxide 22.0 (21.0-32.0) mmol/L Anion Gap 8 (5-15) BUN 21 H (7-18) mg/dL Creatinine 0.70 (0.70-1.30) mg/dL Estim Creat Clear Calc 132.45 ml/min Est GFR (MDRD) Af Amer 146 (>60) mL/min Est GFR (MDRD) Non-Af 121 (>60) mL/min BUN/Creatinine Ratio 29.8 H (10-20) RATIO Glucose 90 (74-106) mg/dL Calcium 8.1 L (8.5-10.1) mg/dL Phosphorus (2.5-4.9) mg/dL Magnesium 1.8 (1.6-2.6) mg/dL Total Bilirubin (0.20-1.00) mg/dL AST (15-37) U/L ALT (16-61) U/L Alkaline Phosphatase (45-117) U/L Total Protein (6.4-8.2) g/dL Albumin (3.2-5.0) g/dL Globulin (2.2-4.2) g/dL Albumin/Globulin Ratio (0.9-2.4) RATIO Amylase (25-115) U/L Lipase (73-393) U/L Urine Color (Yellow) Urine Clarity (Clear) Urine pH (5.0 - 8.0) Ur Specific [place] (1.002-1.030) Urine Protein (Negative) mg/dl Urine Glucose (UA) (Normal) mg/dl Urine Ketones (Negative) mg/dl Urine Occult Blood (Negative) /ul Urine Nitrite (Negative) Urine Bilirubin (Negative) mg/dL Urine Urobilinogen (Normal) mg/dl Ur Leukocyte Esterase (Negative) /ul Urine RBC (0-5) /hpf Urine WBC (0-5) /hpf Ur Squamous Epith Cells (0-5) /hpf Urine Bacteria (None Seen) /hpf Urine Mucus (<or=2+) /hpf Urine Opiates Screen (< 300 ng/mL) Urine Methadone Screen (< 300 ng/mL) Ur Barbiturates Screen (< 200 ng/mL) Ur Phencyclidine Scrn (< 25 ng/mL) Ur Amphetamines Screen (<1000 ng/mL) U Methamphetamin-MDMA (< 500 ng/mL) U Benzodiazepines Scrn (< 200 ng/mL) Urine Cocaine Screen (< 300 ng/mL) U Cannabinoids Screen (< 50 ng/mL) Ur Drug Screen Comment Ethyl Alcohol mg/dL 10/01/18 09/30/18 09/30/18 Range/Units 07:37 19:20 19:20 WBC (4.4-11.0) K/mm3 RBC (4.6-6.2) M/mm3 Hgb (13.0-16.5) g/dl Hct (40-54) % MCV (80-94) fL MCH (27.0-32.0) pg MCHC (32-36) g/gl RDW (11.6-14.6) % RDW Differential (35.1-43.9) fl Plt Count (150-450) K/mm3 MPV (6.2-12.0) fl Immature Gran % (Auto) (0.0-0.9) % Neut % (Auto) (47-70) % Lymph % (Auto) (19-41) % Evans % (Auto) (0-10) % Eos % (Auto) (0-5) % Baso % (Auto) (0-1) % Absolute Neuts (auto) (2.0-7.7) X10^3/uL Absolute Lymphs (auto) (0.83-4.51) X10^3/ul Total Counted Differential Comment PT (11.7-14.9) SECONDS INR Sodium 143 (136-145) mmol/L Potassium 3.4 L (3.5-5.1) mmol/L Chloride 112 H (98-107) mmol/L Carbon Dioxide 25.0 (21.0-32.0) mmol/L Anion Gap 6 (5-15) BUN 25 H (7-18) mg/dL Creatinine 0.94 (0.70-1.30) mg/dL Estim Creat Clear Calc 98.63 ml/min Est GFR (MDRD) Af Amer 105 (>60) mL/min Est GFR (MDRD) Non-Af 87 (>60) mL/min BUN/Creatinine Ratio 26.7 H (10-20) RATIO Glucose 105 (74-106) mg/dL Calcium 8.0 L (8.5-10.1) mg/dL Phosphorus 2.5 (2.5-4.9) mg/dL Magnesium (1.6-2.6) mg/dL Total Bilirubin (0.20-1.00) mg/dL AST (15-37) U/L ALT (16-61) U/L Alkaline Phosphatase (45-117) U/L Total Protein (6.4-8.2) g/dL Albumin (3.2-5.0) g/dL Globulin (2.2-4.2) g/dL Albumin/Globulin Ratio (0.9-2.4) RATIO Amylase (25-115) U/L Lipase (73-393) U/L Urine Color Yellow (Yellow) Urine Clarity Clear (Clear) Urine pH 6.0 (5.0 - 8.0) Ur Specific [place] 1.010 (1.002-1.030) Urine Protein Negative (Negative) mg/dl Urine Glucose (UA) Normal (Normal) mg/dl Urine Ketones Negative (Negative) mg/dl Urine Occult Blood Negative (Negative) /ul Urine Nitrite Negative (Negative) Urine Bilirubin Negative (Negative) mg/dL Urine Urobilinogen Normal (Normal) mg/dl Ur Leukocyte Esterase Negative (Negative) /ul Urine RBC 0 SEEN (0-5) /hpf Urine WBC 0 SEEN (0-5) /hpf Ur Squamous Epith Cells 0 SEEN (0-5) /hpf Urine Bacteria 0 SEEN (None Seen) /hpf Urine Mucus 0 SEEN (<or=2+) /hpf Urine Opiates Screen POSITIVE H (< 300 ng/mL) Urine Methadone Screen NEGATIVE (< 300 ng/mL) Ur Barbiturates Screen NEGATIVE (< 200 ng/mL) Ur Phencyclidine Scrn NEGATIVE (< 25 ng/mL) Ur Amphetamines Screen NEGATIVE (<1000 ng/mL) U Methamphetamin-MDMA NEGATIVE (< 500 ng/mL) U Benzodiazepines Scrn NEGATIVE (< 200 ng/mL) Urine Cocaine Screen NEGATIVE (< 300 ng/mL) U Cannabinoids Screen NEGATIVE (< 50 ng/mL) Ur Drug Screen Comment Ethyl Alcohol mg/dL 09/30/18 09/30/18 09/30/18 Range/Units 15:45 15:45 15:45 WBC (4.4-11.0) K/mm3 RBC (4.6-6.2) M/mm3 Hgb (13.0-16.5) g/dl Hct (40-54) % MCV (80-94) fL MCH (27.0-32.0) pg MCHC (32-36) g/gl RDW (11.6-14.6) % RDW Differential (35.1-43.9) fl Plt Count (150-450) K/mm3 MPV (6.2-12.0) fl Immature Gran % (Auto) (0.0-0.9) % Neut % (Auto) (47-70) % Lymph % (Auto) (19-41) % Evans % (Auto) (0-10) % Eos % (Auto) (0-5) % Baso % (Auto) (0-1) % Absolute Neuts (auto) (2.0-7.7) X10^3/uL Absolute Lymphs (auto) (0.83-4.51) X10^3/ul Total Counted Differential Comment PT (11.7-14.9) SECONDS INR Sodium 137 (136-145) mmol/L Potassium 3.2 L (3.5-5.1) mmol/L Chloride 107 (98-107) mmol/L Carbon Dioxide 20.0 L (21.0-32.0) mmol/L Anion Gap 10 (5-15) BUN 15 (7-18) mg/dL Creatinine 0.95 (0.70-1.30) mg/dL Estim Creat Clear Calc 97.60 ml/min Est GFR (MDRD) Af Amer 104 (>60) mL/min Est GFR (MDRD) Non-Af 86 (>60) mL/min BUN/Creatinine Ratio 15.8 (10-20) RATIO Glucose 98 (74-106) mg/dL Calcium 8.0 L (8.5-10.1) mg/dL Phosphorus (2.5-4.9) mg/dL Magnesium 1.5 L (1.6-2.6) mg/dL Total Bilirubin 1.10 H (0.20-1.00) mg/dL AST 42 H (15-37) U/L ALT 46 (16-61) U/L Alkaline Phosphatase 84 (45-117) U/L Total Protein 7.0 (6.4-8.2) g/dL Albumin 3.0 L (3.2-5.0) g/dL Globulin 4.0 (2.2-4.2) g/dL Albumin/Globulin Ratio 0.8 L (0.9-2.4) RATIO Amylase 40 (25-115) U/L Lipase 66 L (73-393) U/L Urine Color (Yellow) Urine Clarity (Clear) Urine pH (5.0 - 8.0) Ur Specific [place] (1.002-1.030) Urine Protein (Negative) mg/dl Urine Glucose (UA) (Normal) mg/dl Urine Ketones (Negative) mg/dl Urine Occult Blood (Negative) /ul Urine Nitrite (Negative) Urine Bilirubin (Negative) mg/dL Urine Urobilinogen (Normal) mg/dl Ur Leukocyte Esterase (Negative) /ul Urine RBC (0-5) /hpf Urine WBC (0-5) /hpf Ur Squamous Epith Cells (0-5) /hpf Urine Bacteria (None Seen) /hpf Urine Mucus (<or=2+) /hpf Urine Opiates Screen (< 300 ng/mL) Urine Methadone Screen (< 300 ng/mL) Ur Barbiturates Screen (< 200 ng/mL) Ur Phencyclidine Scrn (< 25 ng/mL) Ur Amphetamines Screen (<1000 ng/mL) U Methamphetamin-MDMA (< 500 ng/mL) U Benzodiazepines Scrn (< 200 ng/mL) Urine Cocaine Screen (< 300 ng/mL) U Cannabinoids Screen (< 50 ng/mL) Ur Drug Screen Comment Ethyl Alcohol 8.0 mg/dL 09/30/18 09/30/18 Range/Units 15:45 15:45 WBC 9.0 (4.4-11.0) K/mm3 RBC 4.41 L (4.6-6.2) M/mm3 Hgb 13.6 (13.0-16.5) g/dl Hct 39.8 L (40-54) % MCV 90.2 (80-94) fL MCH 30.8 (27.0-32.0) pg MCHC 34.2 (32-36) g/gl RDW 14.1 (11.6-14.6) % RDW Differential 46.8 H (35.1-43.9) fl Plt Count 132 L (150-450) K/mm3 MPV 11.9 (6.2-12.0) fl Immature Gran % (Auto) 0.300 (0.0-0.9) % Neut % (Auto) 90.4 H (47-70) % Lymph % (Auto) 3.1 L (19-41) % Evans % (Auto) 5.8 (0-10) % Eos % (Auto) 0.2 (0-5) % Baso % (Auto) 0.2 (0-1) % Absolute Neuts (auto) 8.1 H (2.0-7.7) X10^3/uL Absolute Lymphs (auto) 0.28 L (0.83-4.51) X10^3/ul Total Counted Not Reportable Differential Comment SCANNED PT 15.6 H (11.7-14.9) SECONDS INR 1.2 Sodium (136-145) mmol/L Potassium (3.5-5.1) mmol/L Chloride (98-107) mmol/L Carbon Dioxide (21.0-32.0) mmol/L Anion Gap (5-15) BUN (7-18) mg/dL Creatinine (0.70-1.30) mg/dL Estim Creat Clear Calc ml/min Est GFR (MDRD) Af Amer (>60) mL/min Est GFR (MDRD) Non-Af (>60) mL/min BUN/Creatinine Ratio (10-20) RATIO Glucose (74-106) mg/dL Calcium (8.5-10.1) mg/dL Phosphorus (2.5-4.9) mg/dL Magnesium (1.6-2.6) mg/dL Total Bilirubin (0.20-1.00) mg/dL AST (15-37) U/L ALT (16-61) U/L Alkaline Phosphatase (45-117) U/L Total Protein (6.4-8.2) g/dL Albumin (3.2-5.0) g/dL Globulin (2.2-4.2) g/dL Albumin/Globulin Ratio (0.9-2.4) RATIO Amylase (25-115) U/L Lipase (73-393) U/L Urine Color (Yellow) Urine Clarity (Clear) Urine pH (5.0 - 8.0) Ur Specific [place] (1.002-1.030) Urine Protein (Negative) mg/dl Urine Glucose (UA) (Normal) mg/dl Urine Ketones (Negative) mg/dl Urine Occult Blood (Negative) /ul Urine Nitrite (Negative) Urine Bilirubin (Negative) mg/dL Urine Urobilinogen (Normal) mg/dl Ur Leukocyte Esterase (Negative) /ul Urine RBC (0-5) /hpf Urine WBC (0-5) /hpf Ur Squamous Epith Cells (0-5) /hpf Urine Bacteria (None Seen) /hpf Urine Mucus (<or=2+) /hpf Urine Opiates Screen (< 300 ng/mL) Urine Methadone Screen (< 300 ng/mL) Ur Barbiturates Screen (< 200 ng/mL) Ur Phencyclidine Scrn (< 25 ng/mL) Ur Amphetamines Screen (<1000 ng/mL) U Methamphetamin-MDMA (< 500 ng/mL) U Benzodiazepines Scrn (< 200 ng/mL) Urine Cocaine Screen (< 300 ng/mL) U Cannabinoids Screen (< 50 ng/mL) Ur Drug Screen Comment Ethyl Alcohol mg/dL NONE Operations: None Procedures: None Summary of Care Provided: Mr Garland is a 63-year-old male with a history of depression/anxiety, tobacco dependence, hepatitis C, COPD and narcotic dependence. He has been using heroin since the age of 24 and uses 2 g daily. His last used was on 09/29/2018. He had 2 admissions to the [facility] in 2018 for heroin withdrawal. Admission lab showed Potassium was low at 3.2 and the magnesium was low at 1.5. Bilirubin was mildly elevated at 1.1 and the transaminases were unremarkable. Chest x-ray showed hyperinflation with flattened diaphragms secondary to COPD. His most recent admission was in May 2018 and at that time he elected to follow-up as an outpatient with 180. He was admitted to the [facility] and the opioid withdrawal protocol was initiated. A nicotine patch was provided. Smoking cessation counseling was given. He completed the 72 hour Suboxone taper and was discharged on 10/03/18. GENERAL: alert, oriented X 3, Cooperative, NAD, looks older than his stated age ORAL: moist mucosa, no mucosal lesions NECK: No JVD, supple, trachea midline LUNGS: CTA, symmetric chest expansion, diminished, scattered rhonchi HEART: RRR, Normal S1 and S2, no rub, no gallop, no murmur ABDOMEN: soft, NT, ND, BS present, no guarding with palpation EXTREMITIES: no edema, no cyanosis, no calf tenderness SKIN: No rashes, no breakdown NEUROLOGIC: no focal neurologic deficits PSYCH: appropriate, normal affect, pleasant This note was generated with [employer] dictation software. It may contain incorrect words, spelling, and punctuation that were not noted in checking the note before signing. - Physical Exam Vital Signs Temp Pulse Resp BP Pulse Ox 98.1 F 52 L 18 142/80 H 95 10/03/18 17:04 10/03/18 17:04 10/03/18 17:04 10/03/18 17:04 09/30/18 14:54 Oxygen Delivery Method Room Air Weight: 188 lb 4.396 oz Body Mass Index (BMI) 23.5 Discharge Activity: Return to Normal Activity Call your doctor if you observe: Fever of 101 or Higher Home Medications: Medications to take at Discharge Clonidine HCl [Catapres] 0.1 mg PO Q8H #6 tab 10/03/18 Following Prescrptions Were Given to Patient: Clonidine HCl [Catapres] 0.1 mg PO Q8H #6 tab Primary Care Physician: Care Physician,No Primary [Primary Care Provider] - Disposition: Home Minutes spent on discharge:: 30 Patient Condition:: Good Medical Necessity - Tobacco Use Smoking Status: Heavy Smoker (>10/day) Tobacco Use: Cigarettes Meaningful Use Info Meaningful Use Diagnoses (Choose all that apply): None applicable Code Visit Inpatient E&M: 15806 Disch Hosp
== END 2018-10-03 17:54 | disposition home or self-care (01) | DRG 773 ==
PROVIDERS: Admitting Provider Internal Medicine; Referring Provider Internal Medicine; Visit Provider Internal Medicine
DX: F11.23 Opioid dependence with withdrawal (principal); B18.2 Chronic viral hepatitis C; J43.9 Emphysema, unspecified; F17.210 Nicotine dependence, cigarettes, uncomplicated; E87.6 Hypokalemia; J44.9 Chronic obstructive pulmonary disease, unspecified
CPT/HCPCS: 36415; 71046; 80048; 80053; 80307; 80320; 81001; 82150; 83690; 83735; 84100; 85025; 85027; 85610; 87631; 94640; G0480

== ENCOUNTER 2024-09-26 11:28 | Inpatient (IN) | payer MEDICARE, MEDICAID, SELFPAY ==
[2024-09-26] VITALS (9 sets, daily range): BP systolic 128–169; BP diastolic 80–104; PULSE 54–65; RESP 18–22; TEMP 35.9–36.9; O2SAT 95–98; BMI 29.2; BMI 28.8
--- NOTE | 2024-09-26 11:46 | EDS_ITS ---
HPI <RAMÍREZ Lopez - Last Filed: 09/26/24 13:46> History of Present Illness Chief Complaint: Substance Abuse Narrative Narrative: Patient presenting today requesting to detox from fentanyl. He has a longstanding history of opioid abuse starting at the age of 24. He has detoxed several times in the past. He reports that he was recently clean for a year and over the last several months started using again. He uses about a half a gram per day and snorts it, he denies injection use. He denies any other substance use. He last used fentanyl 2 days ago, he took Percocet yesterday. He does feel he is going through withdrawal and reports feeling like his body is on fire, nausea, and episode of vomiting, and irritability. He has a PMH of depression/anxiety, tobacco dependence, hepatitis C, and COPD. PFSH <RAMÍREZ Lopez - Last Filed: 09/26/24 13:46> PFSH Medical History Substance abuse Smoker Allergy/AdvReac Type Severity Reaction Status Date / Time fluconazole (From Diflucan) Allergy Intermediate Hives Verified 09/26/24 11:28 Social History Smoking Status: Heavy Smoker (>10/day) ROS <RAMÍREZ Lopez - Last Filed: 09/26/24 13:46> ROS ED Constitutional Constitutional ED: Denies chills or fever(s) Eyes Eyes: Denies blurry vision Cardiovascular Cardiovascular: Denies chest pain Respiratory/Chest Respiratory/Chest: Denies dyspnea Gastrointestinal Gastrointestinal: Reports nausea and vomiting; Denies abdominal pain or diarrhea Genitourinary Genitourinary ED: Denies dysuria, hematuria or urinary urgency Musculoskeletal Musculoskeletal: Denies arthralgias or myalgias Integumentary Denies rash Neurologic Neurologic: Denies weakness Psychiatric Psychiatric: Denies anxiety, depression, suicidal ideation or suicidal thoughts EXAM <RAMÍREZ Lopez - Last Filed: 09/26/24 13:46> Physical Exam Const Vital Signs: 09/26/24 11:29 09/26/24 12:27 09/26/24 12:56 Temperature 96.6 F L 98.1 F Temperature Source Temporal Pulse Rate 56 L 54 L 58 L Respiratory Rate 22 H 18 18 Blood Pressure 158/104 H 163/104 H Blood Pressure Mean 122 123 Pulse Ox 98 95 Oxygen Delivery Method Room Air Positive well nourished, well developed and no apparent distress General Appearance ED: well developed HEENT Reports normocephalic and head/scalp atraumatic Mouth ED: Yes moist mucous membranes normal Eyes PERRL and EOMs intact bilaterally Neck full ROM and supple Chest Wall inspection of chest normal Resp normal respiratory effort and clear to auscultation bilaterally Cardio regular rate and regular rhythm GI soft to palpation, non-tender, non-distended and no masses Back/Spine normal ROM and normal to inspection Extremity normal to inspection and full ROM Neuro oriented x3, CN's II-XII intact bilaterally, moves all extremities, no focal motor deficits and no sensory deficits noted Sensorium / Orientation: awake and alert Psych mental status grossly normal and thought process normal Skin no rashes or lesions noted and no wounds <Dr. Kevin Stone DO - Last Filed: 09/26/24 17:08> Physical Exam Const Vital Signs: 09/26/24 11:29 09/26/24 12:27 09/26/24 12:56 Temperature 96.6 F L 98.1 F Temperature Source Temporal Pulse Rate 56 L 54 L 58 L Respiratory Rate 22 H 18 18 Blood Pressure 158/104 H 163/104 H Blood Pressure Mean 122 123 Pulse Ox 98 95 Oxygen Delivery Method Room Air MDM <RAMÍREZ Lopez - Last Filed: 09/26/24 13:46> [facility] Narrative Medical decision making narrative: Patient presenting today requesting to detox from fentanyl. He has a longstanding history of opioid abuse. He has detoxed here in the past. He last used fentanyl 2 days ago and Percocet yesterday. He reports feeling irritable, feeling like his body is on fire, he had an episode of nausea and vomiting this morning. He was given Zofran for his nausea. Labs will be obtained and he will be admitted for detox. Did request something for anxiety and was given Ativan prior to admission. Patient admitted in stable condition. Lab Data Attestation: I reviewed the patient's lab results. Lab results narrative: CBC, BMP unremarkable, urine drug screen positive for opiates. Negative alcohol level. Labs: Laboratory Results - last 24 hr 09/26/24 09/26/24 12:27 12:52 WBC 6.3 RBC 5.50 Hgb 16.5 Hct 49.4 MCV 89.8 MCH 30.0 MCHC 33.4 RDW Std Deviation 45.5 H RDW Coeff of Ayush 13.8 Plt Count 179 MPV 11.0 Immature Gran % (Auto) 0.600 Neut % (Auto) 70.1 H Lymph % (Auto) 18.2 L [place] % (Auto) 6.3 Eos % (Auto) 3.8 Baso % (Auto) 1.0 Absolute Neuts (auto) 4.4 Absolute Lymphs (auto) 1.15 Nucleated RBC % 0 Sodium 138 Potassium 4.3 Chloride 109 H Carbon Dioxide 22.0 Anion Gap 7 BUN 14 Creatinine 0.89 Estim Creat Clear Calc 106.12 Est GFR (MDRD) Af Amer 110 Est GFR (MDRD) Non-Af 91 BUN/Creatinine Ratio 15.8 Glucose 104 Calcium 9.7 Total Bilirubin 1.00 Direct Bilirubin 0.25 AST 25 ALT 34 Alkaline Phosphatase 84 Total Protein 8.1 Albumin 3.7 Globulin 4.4 H Urine Opiates Screen POSITIVE H Urine Methadone Screen NEGATIVE Ur Barbiturates Screen NEGATIVE Ur Phencyclidine Scrn NEGATIVE Ur Amphetamines Screen NEGATIVE MDMA (Ecstasy) Screen NEGATIVE U Benzodiazepines Scrn NEGATIVE Urine Cocaine Screen NEGATIVE U Cannabinoids Screen NEGATIVE Ur Drug Screen Comment Ethyl Alcohol 3.0 <Dr. Kevin Stone, DO - Last Filed: 09/26/24 17:08> [facility] Narrative Medical decision making narrative: Patient presenting today requesting to detox from fentanyl. He has a longstanding history of opioid abuse. He has detoxed here in the past. He last used fentanyl 2 days ago and Percocet yesterday. He reports feeling irritable, feeling like his body is on fire, he had an episode of nausea and vomiting this morning. He was given Zofran for his nausea. Labs will be obtained and he will be admitted for detox. Did request something for anxiety and was given Ativan prior to admission. Patient admitted in stable condition. ED attending note: I evaluated the patient in conjunction with the PABLITO. I agree with his/her statements and above findings. I have personally performed a face to face assessment of the patient and have reviewed the PABLITO Note. I performed a substantive portion of the visit including all aspects of the following. I personally saw the patient performed chart review, physical exam, reviewed labs, imaging (if obtained), and formulated a treatment and management plan. This note was generated with [employer] dictation software. It may contain incorrect words, spelling, and punctuation that were not noted in review of the chart prior to signing. Lab Data Labs: Laboratory Results - last 24 hr 09/26/24 09/26/24 12:27 12:52 WBC 6.3 RBC 5.50 Hgb 16.5 Hct 49.4 MCV 89.8 MCH 30.0 MCHC 33.4 RDW Std Deviation 45.5 H RDW Coeff of Ayush 13.8 Plt Count 179 MPV 11.0 Immature Gran % (Auto) 0.600 Neut % (Auto) 70.1 H Lymph % (Auto) 18.2 L [place] % (Auto) 6.3 Eos % (Auto) 3.8 Baso % (Auto) 1.0 Absolute Neuts (auto) 4.4 Absolute Lymphs (auto) 1.15 Nucleated RBC % 0 Sodium 138 Potassium 4.3 Chloride 109 H Carbon Dioxide 22.0 Anion Gap 7 BUN 14 Creatinine 0.89 Estim Creat Clear Calc 106.12 Est GFR (MDRD) Af Amer 110 Est GFR (MDRD) Non-Af 91 BUN/Creatinine Ratio 15.8 Glucose 104 Calcium 9.7 Total Bilirubin 1.00 Direct Bilirubin 0.25 AST 25 ALT 34 Alkaline Phosphatase 84 Total Protein 8.1 Albumin 3.7 Globulin 4.4 H Urine Opiates Screen POSITIVE H Urine Methadone Screen NEGATIVE Ur Barbiturates Screen NEGATIVE Ur Phencyclidine Scrn NEGATIVE Ur Amphetamines Screen NEGATIVE MDMA (Ecstasy) Screen NEGATIVE U Benzodiazepines Scrn NEGATIVE Urine Cocaine Screen NEGATIVE U Cannabinoids Screen NEGATIVE Ur Drug Screen Comment Ethyl Alcohol 3.0 Discharge Plan Dx/Rx/DC Orders Clinical Impression: Withdrawal from opioids, Opiate abuse, continuous, Desire for detoxification Disposition Disposition: Acute Care Hospital [facility] Discharge Date/Time: 09/26/24 14:03
[2024-09-26] MEDS: Ondansetron ODT 4 MG Tablet PO (11:57)
[2024-09-26 12:35] LABS: Absolute Lymphocyte Count 1.15 X10^3/uL (0.83-4.51); Absolute Neutrophil Count 4.4 X10^3/uL (2.0-7.7); Basophil# 0.06 X10^3/uL; Eosinophil# 0.24 X10^3/uL; Eosinophils% 3.8 % (0-5); Hematocrit 49.4 % (40-54); Hemoglobin 16.5 g/dL (13.0-16.5); Lymphocyte # 1.15 X10^3/ul (0.83-4.51); Lymphocyte % 18.2 % (19-41); Mean Corp Hgb Conc 33.4 g/dL (32-36); Mean Corpuscular Volume 89.8 fL (80-94); Monocyte% 6.3 % (0-10); NRBC Flagged by Analyzer 0 % (0-5); Neutrophil # 4.42 X10^3/uL (2.7-7.7); Neutrophil % 70.1 % (47-70); Platelet Count 179 K/mm3 (150-450); RBC Distribution Width CV 13.8 % (11.6-14.6); RBC Distribution Width SD 45.5 fl (35.1-43.9); White Blood Count 6.3 K/mm3 (4.4-11.0)
[2024-09-26 12:48] LABS: Anion Gap 7 (5-15); BUN 14 mg/dL (7-18); BUN/Creat Ratio 15.8 RATIO (10-20); Calcium,Total 9.7 mg/dL (8.5-10.1); Chloride 109 mmol/L (98-107); Creatinine, Serum 0.89 mg/dL (0.70-1.30); EST Glomerular Filtration Rate 91 mL/min (>60); Est Glom Filt Rate - Afr Amer 110 mL/min (>60); Estimated Creatinine Clearance 106.12 ml/min; Glucose 104 mg/dL (74-106); Potassium 4.3 mmol/L (3.5-5.1); Sodium Level 138 mmol/L (136-145)
--- NOTE | 2024-09-26 12:58 | PCM.HP.STD ---
HPI - General General Date of Admission: 09/26/24 Date of Service: 09/26/24 Chief Complaint: Opiate withdrawal HPI Narrative ONEL CUEVAS, is a 69 M who presented to [facility] ED on 09/26/2024 with opiate withdrawal and desire for detoxification. Patient has been through detox here in the past, last time was back in 2019. States he was clean for a few years but then relapsed several months ago. He is currently using half a gram per day of fentanyl and snorts it. Denies any IV drug use. Denies any other drug use. Denies alcohol use. He is a current smoker, smokes about 1 pack/day. Was reporting withdrawal symptoms of nausea, irritability, insomnia and shakiness on arrival here. Has reported history of hepatitis C, COPD and depression/anxiety but does not take any home medications. Was hypertensive to the 160s systolic in the ED but otherwise hemodynamically stable on room air. Was given a dose of Zofran and hospitalist was contacted for admission. I saw the patient at bedside in the ED. He was sitting back in bed and mildly uncomfortable appearing due to ongoing withdrawal symptoms. He was pleasant and answering questions appropriately. Stated that Zofran was somewhat helpful for his nausea. No other acute concerns at this time. PFSH Allergy/AdvReac Type Severity Reaction Status Date / Time fluconazole (From Diflucan) Allergy Intermediate Hives Verified 09/26/24 11:28 Social History Smoking Status: Heavy Smoker (>10/day) ROS Constitutional Constitutional: Reports fatigue; Denies chills, fever(s) or weakness Eyes Eyes: Denies change in vision Cardiovascular Cardiovascular: Denies chest pain Respiratory/Chest Respiratory/Chest: Denies shortness of breath at rest Gastrointestinal Gastrointestinal: Reports nausea and vomiting; Denies abdominal pain, constipation or diarrhea Genitourinary Genitourinary: Denies dysuria Musculoskeletal Musculoskeletal: Reports myalgias; Denies arthralgias Neurologic Neurologic: Reports tremor(s); Denies dizziness or headache(s) Psychiatric Psychiatric: Reports anxiety Vital Signs Vital Signs Vital Signs: 09/26/24 11:29 09/26/24 12:27 09/26/24 12:56 Temperature 96.6 F L 98.1 F Temperature Source Temporal Pulse Rate 56 L 54 L 58 L Respiratory Rate 22 H 18 18 Blood Pressure 158/104 H 163/104 H Blood Pressure Mean 122 123 Pulse Ox 98 95 Oxygen Delivery Method Room Air Weight Weight: 106.141 kg Body Mass Index (BMI) 29.2 Physical Exam Const alert and oriented x3 Constitutional Narrative: Upper middle-aged male, overweight, mildly fatigued and uncomfortable appearing due to withdrawal symptoms, otherwise sitting up in bed and answering questions appropriately. General Appearance: cooperative HEENT normocephalic, head/scalp atraumatic, hearing grossly normal bilaterally, nasal mucous membranes and turbinates normal and moist oral mucous membranes Eyes PERRL, EOMs intact bilaterally and conjunctivae normal Neck full ROM Chest inspection of chest normal Resp normal respiratory effort, normal air movement, no use of accessory muscles and clear to auscultation bilaterally Cardio regular rate, regular rhythm, no murmurs and peripheral pulses 2+ throughout GI normal to inspection, nondistended, normoactive bowel sounds, soft to palpation, non-tender and non-distended Back/Spine normal ROM Extremity normal to inspection, full ROM and no pedal edema Skin no rashes or lesions noted Psych mental status grossly normal Results Lab / Micro Data 09/26/24 12:27 09/26/24 12:27 Labs: Laboratory Results - last 24 hr 09/26/24 12:27: WBC 6.3, RBC 5.50, Hgb 16.5, Hct 49.4, MCV 89.8, MCH 30.0, MCHC 33.4, RDW Std Deviation 45.5 H, RDW Coeff of Ayush 13.8, Plt Count 179, MPV 11.0, Immature Gran % (Auto) 0.600, Neut % (Auto) 70.1 H, Lymph % (Auto) 18.2 L, Woodson % (Auto) 6.3, Eos % (Auto) 3.8, Baso % (Auto) 1.0, Absolute Neuts (auto) 4.4, Absolute Lymphs (auto) 1.15, Nucleated RBC % 0, Sodium 138, Potassium 4.3, Chloride 109 H, Carbon Dioxide 22.0, Anion Gap 7, BUN 14, Creatinine 0.89, Estim Creat Clear Calc 106.12, Est GFR (MDRD) Af Amer 110, Est GFR (MDRD) Non-Af 91, BUN/Creatinine Ratio 15.8, Glucose 104, Calcium 9.7, Ethyl Alcohol 3.0 09/26/24 12:52: Ur Drug Screen Comment Assessment & Plan Assessment/Plan (1) Opiate abuse, continuous: (2) Withdrawal from opioids: (3) Desire for detoxification: (4) Nicotine abuse: PLAN: Plan Patient is a 69-year-old male who presented [facility] ED on 09/26/2024 with opiate withdrawal and desire for detoxification. 1. Opiate abuse with withdrawal and desire for detoxification ? Admit under inpatient status to [facility]. Addiction medicine consulted. Snorts 0.5 grams of fentanyl daily. Denies other drug use. Urine drug screen pending. Will treat with Subutex taper and other as needed medications per opiate withdrawal order set. 2. Elevated BP ? Systolic BP in the 150s to 160s in the ED. May be secondary to withdrawal. No reported history of hypertension. Monitor and will order IV hydralazine as needed for systolic BPs greater than 170. 3. Tobacco use ? Current smoker, smokes 1 pack of cigarettes per day. Nicotine patch ordered per patient request. Discussed cessation. 4. Reported history of hepatitis C ? Hepatic panel ordered. DVT prophylaxis: Lovenox CODE STATUS: Full code, unverified Expected disposition: TBD Total clinical time spent by myself addressing the patient's medical issues, reviewing all the data, and collaborating with patient's care team: 40 minutes. Charges/Coding Visit Charges Inpatient E&M: 16098 Init Hosp L1
[2024-09-26 13:33] LABS: Amphetamine Urine NEGATIVE (<1000 ng/mL); Barbiturate Urine VISTA NEGATIVE (< 200 ng/mL); Benzodiazepine Urine VISTA NEGATIVE (< 200 ng/mL); Cocaine Urine VISTA NEGATIVE (< 300 ng/mL); Ecstacy Urine VISTA NEGATIVE (< 500 ng/mL); Methadone Urine VISTA NEGATIVE (< 300 ng/mL); PCP Urine VISTA NEGATIVE (< 25 ng/mL); THC Urine VISTA NEGATIVE (< 50 ng/mL); Vista UDS pH Range 5
[2024-09-26] MEDS: LORazepam 0.5 MG Tablet PO (13:35)
[2024-09-26 13:59] LABS: AST(SGOT) 25 U/L (15-37); Alanine Aminotransfer ALT/SGPT 34 U/L (16-61); Albumin, Serum 3.7 g/dL (3.2-5.0); Alkaline Phosphatase 84 U/L (45-117); Bilirubin, Direct 0.25 mg/dL (0.00-0.30); Globulin 4.4 g/dL (2.2-4.2); Protein, Total 8.1 g/dL (6.4-8.2)
[2024-09-26] MEDS: Buprenorphine HCl 2 MG TAB.SUBL SL ×2 (14:44→22:48)
[2024-09-26] MEDS: Methocarbamol 750 MG Tablet PO ×2 (14:45→20:08)
[2024-09-26] MEDS: hydrOXYzine PAM 25 MG Capsule 50 MG PO ×2 (14:45→20:08)
[2024-09-26] MEDS: Gabapentin 300 MG Capsule PO ×2 (15:49→22:47)
[2024-09-26] MEDS: cloNIDine HCl 0.1 MG Tablet PO (16:46)
[2024-09-26] MEDS: tiZANidine HCl 2 MG Tablet PO (20:08)
[2024-09-26] MEDS: traZODone 100 MG Tablet PO (20:08)
[2024-09-27 02:00] VITALS: BP 143/97; PULSE 55; RESP 19; TEMP 36.5; O2SAT 96
[2024-09-27] MEDS: Acetaminophen 325 MG Tablet 650 MG PO (02:10)
[2024-09-27] MEDS: hydrOXYzine PAM 25 MG Capsule 50 MG PO ×3 (02:11→22:12)
[2024-09-27] MEDS: Methocarbamol 750 MG Tablet PO ×3 (02:11→17:30)
[2024-09-27] MEDS: cloNIDine HCl 0.1 MG Tablet PO ×3 (02:11→22:12)
[2024-09-27] MEDS: Buprenorphine HCl 2 MG TAB.SUBL SL ×3 (06:21→22:12)
[2024-09-27] MEDS: Gabapentin 300 MG Capsule PO ×2 (06:54→17:30)
[2024-09-27 06:58] LABS: Hematocrit 44.2 % (40-54); Mean Corp Hgb Conc 33.9 g/dL (32-36); Mean Corpuscular Hgb 30.4 pg (27.0-32.0); Mean Corpuscular Volume 89.5 fL (80-94); Platelet Count 172 K/mm3 (150-450); RBC Distribution Width CV 13.6 % (11.6-14.6); RBC Distribution Width SD 44.5 fl (35.1-43.9); Red Blood Count 4.94 M/mm3 (4.6-6.2); White Blood Count 6.8 K/mm3 (4.4-11.0)
[2024-09-27 07:32] LABS: Anion Gap 5 (5-15); BUN 12 mg/dL (7-18); BUN/Creat Ratio 15.3 RATIO (10-20); Calcium,Total 9.4 mg/dL (8.5-10.1); Chloride 110 mmol/L (98-107); Creatinine, Serum 0.79 mg/dL (0.70-1.30); EST Glomerular Filtration Rate 104 mL/min (>60); Est Glom Filt Rate - Afr Amer 126 mL/min (>60); Estimated Creatinine Clearance 117.23 ml/min; Glucose 88 mg/dL (74-106); Potassium 3.8 mmol/L (3.5-5.1); Sodium Level 140 mmol/L (136-145)
[2024-09-27 08:00] VITALS: BP 117/90; PULSE 56; RESP 18; TEMP 36.6; O2SAT 98
--- NOTE | 2024-09-27 09:01 | PCM.PN.HOSP ---
Reason for Visit Reason for Visit: Diagnoses Opioid abuse, uncomplicated (09/26/24) Opioid dependence with withdrawal (09/26/24) Tobacco use (09/26/24) Subjective Subjective Had restless legs that was very intense last night, since improved. Objective Data Objective Data Vital Signs: Vital Signs Temp Pulse Resp BP Pulse Ox O2 Del Method 36.5 C L 55 L 19 H 143/97 H 96 Room Air 09/27/24 02:00 09/27/24 02:00 09/27/24 02:00 09/27/24 02:00 09/27/24 02:00 09/27/24 02:05 Oxygen Delivery Method Room Air Weight: 104.5 kg Body Mass Index (BMI) 28.8 Intake & Output: Intake and Output for Last 24 Hours 09/25/24 09/26/24 09/27/24 23:59 23:59 23:59 Intake Total 1250 / 1250 Balance 1250 / 1250 Lab / Micro Data 09/27/24 06:40 09/27/24 06:40 Labs: Laboratory Results - last 24 hr 09/26/24 12:27: WBC 6.3, RBC 5.50, Hgb 16.5, Hct 49.4, MCV 89.8, MCH 30.0, MCHC 33.4, RDW Std Deviation 45.5 H, RDW Coeff of Ayush 13.8, Plt Count 179, MPV 11.0, Immature Gran % (Auto) 0.600, Neut % (Auto) 70.1 H, Lymph % (Auto) 18.2 L, Briscoe % (Auto) 6.3, Eos % (Auto) 3.8, Baso % (Auto) 1.0, Absolute Neuts (auto) 4.4, Absolute Lymphs (auto) 1.15, Nucleated RBC % 0, Sodium 138, Potassium 4.3, Chloride 109 H, Carbon Dioxide 22.0, Anion Gap 7, BUN 14, Creatinine 0.89, Estim Creat Clear Calc 106.12, Est GFR (MDRD) Af Amer 110, Est GFR (MDRD) Non-Af 91, BUN/Creatinine Ratio 15.8, Glucose 104, Calcium 9.7, Total Bilirubin 1.00, Direct Bilirubin 0.25, AST 25, ALT 34, Alkaline Phosphatase 84, Total Protein 8.1, Albumin 3.7, Globulin 4.4 H, Ethyl Alcohol 3.0 09/26/24 12:52: Urine Opiates Screen POSITIVE H, Urine Methadone Screen NEGATIVE, Ur Barbiturates Screen NEGATIVE, Ur Phencyclidine Scrn NEGATIVE, Ur Amphetamines Screen NEGATIVE, MDMA (Ecstasy) Screen NEGATIVE, U Benzodiazepines Scrn NEGATIVE, Urine Cocaine Screen NEGATIVE, U Cannabinoids Screen NEGATIVE, Ur Drug Screen Comment 09/27/24 06:40: WBC 6.8, RBC 4.94, Hgb 15.0, Hct 44.2, MCV 89.5, MCH 30.4, MCHC 33.9, RDW Std Deviation 44.5 H, RDW Coeff of Ayush 13.6, Plt Count 172, MPV 11.0, Sodium 140, Potassium 3.8, Chloride 110 H, Carbon Dioxide 25.0, Anion Gap 5, BUN 12, Creatinine 0.79, Estim Creat Clear Calc 117.23, Est GFR (MDRD) Af Amer 126, Est GFR (MDRD) Non-Af 104, BUN/Creatinine Ratio 15.3, Glucose 88, Calcium 9.4 Physical Exam Const alert and no apparent distress Constitutional Narrative: lying on his right side. non-toxic. afebrile. HEENT head/scalp atraumatic and moist oral mucous membranes Resp normal respiratory effort and no retractions Neuro Sensorium / Orientation: awake and alert Assessment & Plan Assessment/Plan (1) Opiate abuse, continuous: PLAN: Acute opiate withdrawal. On buprenorphine taper. addiction medicine to assist with disposition. PLAN: Plan VTE prophylaxis: LMWH. Charges/Coding Visit Charges Inpatient E&M: 55366 Subs Hosp L1
[2024-09-27] MEDS: Enoxaparin 40 MG/0.4 ML Syringe SC (09:54)
[2024-09-27] MEDS: Dicyclomine 10 MG Capsule 20 MG PO ×2 (10:07→17:30)
[2024-09-27 14:00] VITALS: BP 122/87; PULSE 56; RESP 16; TEMP 36.4; O2SAT 97
[2024-09-27 16:24] VITALS: O2SAT 95
[2024-09-27 19:36] VITALS: BP 112/77; PULSE 57; RESP 16; TEMP 36.4; O2SAT 95
[2024-09-27] MEDS: traZODone 100 MG Tablet PO (22:12)
[2024-09-27 22:16] VITALS: BP 135/92; PULSE 57; RESP 16; TEMP 36.6; O2SAT 96
[2024-09-28 04:22] VITALS: BP 130/81; PULSE 55; RESP 17; TEMP 36.6; O2SAT 96
[2024-09-28] MEDS: Buprenorphine HCl 2 MG TAB.SUBL SL (06:17)
[2024-09-28] MEDS: Gabapentin 300 MG Capsule PO (06:25)
[2024-09-28] MEDS: cloNIDine HCl 0.1 MG Tablet PO (06:25)
[2024-09-28] MEDS: Acetaminophen 325 MG Tablet 650 MG PO (06:25)
[2024-09-28 07:38] VITALS: O2SAT 94
[2024-09-28 08:52] VITALS: BP 128/86; PULSE 58; RESP 18; TEMP 36.6; O2SAT 92
[2024-09-28] MEDS: Methocarbamol 750 MG Tablet PO (08:57)
[2024-09-28] MEDS: Enoxaparin 40 MG/0.4 ML Syringe SC (08:57)
--- NOTE | 2024-09-28 09:38 | PCM.PN.HOSP ---
Reason for Visit Reason for Visit: Diagnoses Opioid abuse, uncomplicated (09/26/24) Opioid dependence with withdrawal (09/26/24) Tobacco use (09/26/24) Subjective Subjective Feels well. No further restless legs and tolerating diet. Wishes to go home so he can help his who is 9 years old. States that he can follow-up with Narcotics Anonymous. Has 180s number if he needs additional resources. Objective Data Objective Data Vital Signs: Vital Signs Temp Pulse Resp BP Pulse Ox O2 Del Method 36.6 C 58 L 18 128/86 H 92 Room Air 09/28/24 08:52 09/28/24 08:52 09/28/24 08:52 09/28/24 08:52 09/28/24 08:52 09/28/24 09:00 Oxygen Delivery Method Room Air Weight: 104.5 kg Body Mass Index (BMI) 28.8 Intake & Output: Intake and Output for Last 24 Hours 09/26/24 09/27/24 09/28/24 23:59 23:59 23:59 Intake Total 1700 / 1700 250 / 250 Balance 1700 / 1700 250 / 250 Lab / Micro Data 09/27/24 06:40 09/27/24 06:40 Physical Exam Const alert and no apparent distress HEENT head/scalp atraumatic and moist oral mucous membranes Assessment & Plan Assessment/Plan (1) Opiate abuse, continuous: PLAN: Acute opiate withdrawal. On buprenorphine taper. Patient follow-up with Narcotics Anonymous. He is declining 180 services at this time. PLAN: Plan Discharge home
--- NOTE | 2024-09-28 13:18 | PCM.DC.SUM ---
Providers Date of Admission: 09/26/24 Primary Care Physician: Suzanne Primary Care Phys Reason For Visit: OPIATE DETOX Diagnosis Discharge Diagnosis (1) Opiate abuse, continuous: Status: Acute Code(s): F11.10 - Opioid abuse, uncomplicated Plan: Acute opiate withdrawal. On buprenorphine taper. Patient follow-up with Narcotics Anonymous. He is declining 180 services at this time. Plan Discharge home Weight / BMI Weight Weight: 104.5 kg Body Mass Index (BMI) 28.8 ABG / Lab / Microbiology Data 09/27/24 06:40 09/27/24 06:40 D/C Instructions Discharge Diet: No restrictions DC O2, CPAP, BIPAP Needs Home O2 Discharge instructions: No Meaningful Use Info Meaningful Use Meaningful Use Diagnoses (Choose all that apply): None applicable Ischemic Stroke Statin Dosing Therapy Reference: STATIN DOSE THERAPY REFERENCE: * Patients > 75 years receive moderate or high dose statin therapy. * Patients 75 years or YOUNGER should receive HIGH intensity statin dose unless contraindicated. You will be required to document reason for non-treatment if statin daily dose does not meet guidelines. HIGH DOSE STATIN THERAPY DAILY Atorvastatin > than or = to 40 mg Rosuvastatin > than or = to 20 mg Amlodipine + Atorvastatin > than or = to 2.5/40 mg Ezetimibe + Simvastatin 10/80 mg Simvastatin 80mg Discharge Plan Admission Admit Date/Time: 09/26/24 12:58 Primary Reason for Your Visit: Opiate withdrawal Attending Provider: Johan Emerson Primary Care Provider: Care Physician,Suzanne Primary Consulting Providers: Ben Basilio Instructions Additional Instructions / Restrictions: Follow-up with Narcotics Anonymous. Please reach out to 180 addiction services if you feel that you need any additional counseling etc. Discharge Orders/Prescriptions Referrals / Follow Up: Care Physician,No Primary [Primary Care Provider] - Disposition Disposition (needs filled in before D/C Order can be placed): Home, Self Care Charges/Coding Visit Charges Inpatient E&M: 38889 Disch Hosp
== END 2024-09-28 13:25 | disposition home or self-care (01) | DRG 897 ==
LOC: ED 13:08 → MS3 13:45
PROVIDERS: Physician Assistant; Admitting Provider Hospitalist; Emergency Provider Emergency Medicine
DX: F11.13 Opioid abuse with withdrawal (principal); E66.3 Overweight; J44.9 Chronic obstructive pulmonary disease, unspecified; F17.210 Nicotine dependence, cigarettes, uncomplicated; Z68.29 Body mass index [BMI] 29.0-29.9, adult
CPT/HCPCS: 36415; 80048; 80076; 80307; 82077; 85025; 85027; 99283